=== PATIENT | female | born 1980 | race Two or more races ===

== ENCOUNTER → 2020-04-08 08:13 | Outpatient (BNVA) | payer MEDICARE, SELFPAY | PROVIDERS: PCP Internal Medicine; Visit Provider Dietitian, Registered | DX: Z76.89 Persons encountering health services in other specified circumstances (principal) ==

== ENCOUNTER 2020-04-14 15:08 | Outpatient (REF) | payer MEDICARE, MEDICAID, SELFPAY ==
[2020-04-14 15:56] LABS: COVID-19 Test Negative (Negative)
== END 2020-04-14 15:09 | disposition home or self-care (01) ==
LOC: HO.LAB 15:08
PROVIDERS: Visit Provider Internal Medicine
DX: Z20.828 Contact with and (suspected) exposure to other viral communicable diseases (principal)
CPT/HCPCS: 87635

== ENCOUNTER 2020-04-19 08:51 | Outpatient (REF) | payer MEDICARE, MEDICAID, SELFPAY ==
[2020-04-19 10:18] LABS: MANUAL DIFF FLAG NO
[2020-04-19 10:26] LABS: Basophils Absolute Auto 0.1 X10*3/uL (0.0-0.2); Basophils Percent Auto 0.9 % (0-2); Eosinophils Percent Auto 0.6 % (0-4); Hematocrit 34.4 % (37-47); Hemoglobin 10.5 g/dl (12.0-16.0); Imm Gran Abs Auto 0.03 X10*3/uL (0.00-0.03); Imm Gran Pct Auto 0.4 % (0.0-0.4); Lymphocytes Absolute Auto 1.5 X10*3/uL (1.2-4.9); Lymphocytes Percent Auto 21.1 % (20-40); Mean Corpuscular HGB Conc 30.5 g/dl (31.0-35.0); Mean Corpuscular Hemoglobin 25.4 pg (27.0-33.0); Mean Corpuscular Volume 83.3 fL (80-98); Monocytes Absolute Auto 0.3 X10*3/uL (0.1-1.2); Monocytes Percent Auto 4.7 % (2-11); Neutrophils Absolute Auto 5.1 X10*3/uL (2.0-8.3); Neutrophils Percent Auto 72.3 % (45-73); Platelet Count 350 X10*3/uL (160-400); Red Blood Count 4.13 X10*6/uL (4.20-5.50)
[2020-04-19 10:58] LABS: Alanine Aminotransferase 18 U/L (0-31); Albumin Level 3.8 g/dL (3.5-5.0); Alkaline Phosphatase 88 U/L (39-117); Anion Gap 12 (12-20); Aspartate Amino Transferase 25 U/L (5-31); Bilirubin Total 0.2 mg/dL (0.0-1.0); Blood Urea Nitrogen 17 mg/dL (9-16); Calcium 8.6 mg/dL (8.4-10.2); Carbon Dioxide 25 mmol/L (22-29); Chloride 108 mmol/L (96-108); Estimated Glomerular Filt Rate 41; Glucose Random 75 mg/dL (60-115); Potassium 4.5 mmol/l (3.3-5.1); Sodium 140 mmol/L (135-145); Total Protein 6.9 g/dL (6.5-8.0)
[2020-04-19 11:17] LABS: ~HepC Num1 0.15 S/CO (0.00-0.79); ~Hepatitis C Antibody Nonreactive (Nonreactive)
[2020-04-19 11:45] LABS: Syphilis Screen Nonreactive (Nonreactive)
[2020-04-20 16:13] LABS: Absolute CD3 Count 1076 cells/uL (840-3060); Absolute CD4 Count 427 cells/uL (490-1740); Absolute CD8 Count 628 cells/uL (180-1170); Absolute Lymphocytes 1525 cells/uL (850-3900); CD4 CD8 Ratio 0.68 (0.86-5.00); Percent CD3 Cells 71 % (57-85); Percent CD4 Cells 28 % (30-61); Percent CD8 Cells 41 % (12-42)
[2020-04-21 08:01] LABS: HIV RNA PCR Qn Copies <20 DETECTED copies/mL (NOT DETECTED); HIV RNA PCR Qn Log Copies <1.30 DETECTED (NOT DETECTED)
[2020-04-22 06:12] LABS: TS Negative Control Passed; TS Panel A 0; TS Panel B 0; TS Positive Control Passed; TSpotTB Negative (SeeBelow)
== END 2020-04-19 08:52 | disposition home or self-care (01) ==
LOC: HO.LAB 08:51
PROVIDERS: PCP Internal Medicine; Visit Provider Internal Medicine Infectious Disease
DX: B20 Human immunodeficiency virus [HIV] disease (principal)
CPT/HCPCS: 36415; 80053; 85025; 86359; 86360; 86481; 86780; 86803; 87536

== ENCOUNTER → 2020-05-18 08:11 | Outpatient (BNVA) | payer MEDICARE, MEDICAID, SELFPAY | PROVIDERS: PCP Internal Medicine; Referring Provider Internal Medicine; Visit Provider Physician Assistant | DX: E66.01 Morbid (severe) obesity due to excess calories (principal); Z68.41 Body mass index [BMI] 40.0-44.9, adult; Z90.3 Acquired absence of stomach [part of] | CPT/HCPCS: Q3014 ==

== ENCOUNTER → 2020-05-31 08:07 | Outpatient (BNVA) | payer MEDICARE, MEDICAID, SELFPAY | PROVIDERS: PCP Internal Medicine; Visit Provider Dietitian, Registered | DX: Z76.89 Persons encountering health services in other specified circumstances (principal) ==

== ENCOUNTER → 2020-06-09 11:29 | Outpatient (BNVA) | payer MEDICARE, MEDICAID, SELFPAY | PROVIDERS: PCP Internal Medicine; Visit Provider Advanced Practice Midwife | DX: N76.0 Acute vaginitis (principal) | CPT/HCPCS: Q3014 ==

== ENCOUNTER 2020-06-15 10:07 | Outpatient (REF) | payer MEDICARE, MEDICAID, SELFPAY ==
[2020-06-16 09:08] LABS: BV Int Neg Control Negative (Negative); BV Int Pos Control Positive (Positive)
[2020-06-17 07:03] LABS: C. trachomatis RNA TMA NOT DETECTED (NOT DETECTED); N. gonorrhoeae RNA TMA NOT DETECTED (NOT DETECTED)
== END 2020-06-15 10:08 | disposition home or self-care (01) ==
LOC: HO.LAB 10:07
PROVIDERS: Visit Provider Advanced Practice Midwife
DX: Z20.2 Contact with and (suspected) exposure to infections with a predominantly sexual mode of transmission (principal); N76.0 Acute vaginitis
CPT/HCPCS: 87480; 87491; 87510; 87591; 87660; 99212

== ENCOUNTER 2020-06-15 15:19 | Outpatient (REF) | payer OTHER, SELFPAY | END 2020-06-15 15:20 | disposition home or self-care (01) | LOC: HO.LAB 15:19 | PROVIDERS: PCP Internal Medicine; Visit Provider Internal Medicine Infectious Disease | DX: Z13.89 Encounter for screening for other disorder (principal) ==

== ENCOUNTER 2020-06-16 07:48 | Outpatient (REF) | payer MEDICARE, MEDICAID, SELFPAY ==
[2020-06-16 09:36] LABS: Basophils Percent Auto 0.5 % (0-2); Eosinophils Percent Auto 0.7 % (0-4); Hematocrit 34.3 % (37-47); Hemoglobin 10.3 g/dl (12.0-16.0); Imm Gran Abs Auto 0.03 X10*3/uL (0.00-0.03); Imm Gran Pct Auto 0.5 % (0.0-0.4); Lymphocytes Absolute Auto 1.7 X10*3/uL (1.2-4.9); Lymphocytes Percent Auto 30.1 % (20-40); MANUAL DIFF FLAG NO; Mean Corpuscular Hemoglobin 24.7 pg (27.0-33.0); Mean Corpuscular Volume 82.3 fL (80-98); Mean Platelet Volume 11.1 fL (9.4-12.3); Monocytes Absolute Auto 0.3 X10*3/uL (0.1-1.2); Monocytes Percent Auto 5.2 % (2-11); Neutrophils Absolute Auto 3.5 X10*3/uL (2.0-8.3); Platelet Count 338 X10*3/uL (160-400); Red Blood Count 4.17 X10*6/uL (4.20-5.50); Red Cell Distribution Width 15.7 % (11.0-16.0); White Blood Count 5.6 X10*3/uL (4.8-10.8)
[2020-06-16 10:10] LABS: Alanine Aminotransferase 14 U/L (0-31); Albumin Level 3.8 g/dL (3.5-5.0); Alkaline Phosphatase 77 U/L (39-117); Anion Gap 13 (12-20); Aspartate Amino Transferase 17 U/L (5-31); Bilirubin Total 0.4 mg/dL (0.0-1.0); Blood Urea Nitrogen 15 mg/dL (9-16); Calcium 8.3 mg/dL (8.4-10.2); Carbon Dioxide 21 mmol/L (22-29); Chloride 109 mmol/L (96-108); Estimated Glomerular Filt Rate 55; Glucose Random 80 mg/dL (60-115); Potassium 4.6 mmol/l (3.3-5.1); Sodium 138 mmol/L (135-145); Total Protein 6.9 g/dL (6.5-8.0)
[2020-06-16 10:19] LABS: ~HepC Num1 0.15 S/CO (0.00-0.79); ~Hepatitis C Antibody Nonreactive (Nonreactive)
[2020-06-16 10:20] LABS: Syphilis Screen Nonreactive (Nonreactive)
[2020-06-17 12:07] LABS: Absolute CD3 Count 1207 cells/uL (840-3060); Absolute CD4 Count 476 cells/uL (490-1740); Absolute CD8 Count 735 cells/uL (180-1170); Absolute Lymphocytes 1734 cells/uL (850-3900); CD4 CD8 Ratio 0.65 (0.86-5.00); Percent CD3 Cells 70 % (57-85); Percent CD4 Cells 27 % (30-61); Percent CD8 Cells 42 % (12-42)
[2020-06-17 18:27] LABS: C. trachomatis RNA TMA NOT DETECTED (NOT DETECTED); N. gonorrhoeae RNA TMA NOT DETECTED (NOT DETECTED)
[2020-06-18 15:38] LABS: HIV RNA PCR Qn Copies <20 NOT DETECTED copies/mL (NOT DETECTED); HIV RNA PCR Qn Log Copies <1.30 NOT DETECTED (NOT DETECTED)
[2020-06-18 20:18] LABS: TS Negative Control Passed; TS Panel A 0; TS Panel B 0; TS Positive Control Passed; TSpotTB Negative (SeeBelow)
== END 2020-06-16 07:49 | disposition home or self-care (01) ==
LOC: HO.LAB 07:48
PROVIDERS: Absent Provider Advanced Practice Midwife; PCP Internal Medicine; Visit Provider Internal Medicine Infectious Disease
DX: B20 Human immunodeficiency virus [HIV] disease (principal)
CPT/HCPCS: 36415; 80053; 85025; 86359; 86360; 86481; 86780; 86803; 87491; 87536; 87591

== ENCOUNTER → 2020-06-22 08:14 | Outpatient (BNVA) | payer MEDICAID, MEDICARE, SELFPAY | PROVIDERS: PCP Internal Medicine; Visit Provider Dietitian, Registered | DX: Z76.89 Persons encountering health services in other specified circumstances (principal) ==

== ENCOUNTER → 2020-07-22 08:31 | Outpatient (BNVA) | payer MEDICAID, MEDICARE, SELFPAY | PROVIDERS: PCP Internal Medicine; Visit Provider Physician Assistant ==

== ENCOUNTER 2020-07-28 08:45 | Outpatient (REF) | payer MEDICARE, MEDICAID, SELFPAY ==
--- NOTE | 2020-07-28 08:50 | EMG_ITS ---
HISTORY OF PRESENT ILLNESS: This is a 40-year-old woman with a 6-month history of bilateral upper extremity pain, numbness, and tingling with the left being worse than the right. No other medical problems. No medications. PHYSICAL EXAMINATION: On examination, alert and oriented with normal intellectual functions. Cranial nerves II through XII are normal. Muscle tone and strength are normal in all 4 extremities. No Tinel or Phalen sign. IMPRESSION: Rule out carpal tunnel syndrome. Nerve conduction EMG study: Normal electrodiagnostic study of both upper extremities with no evidence of carpal tunnel syndrome or nerve entrapment. Normal EMG of the left C5 through T1 innervated muscles. MD TIFFANIE Ha/MAUREEN / [id number]
== END 2020-07-28 08:46 | disposition home or self-care (01) ==
LOC: HO.NEURO 08:45
PROVIDERS: PCP Internal Medicine; Visit Provider Internal Medicine
DX: M25.531 Pain in right wrist (principal); M25.532 Pain in left wrist; R29.898 Other symptoms and signs involving the musculoskeletal system
CPT/HCPCS: 95885; 95913

== ENCOUNTER 2020-08-09 15:03 | Outpatient (REF) | payer MEDICARE, MEDICAID, SELFPAY ==
--- NOTE | ~2020-08-09 | MM_ITS ---
EXAMINATION: MM SCREENING DIGITAL BREAST TOMOSYNTHESIS, BILATERAL CLINICAL INFORMATION: Screening. Asymptomatic. The lifetime risk of breast cancer based on the Tyrer-Cuzick Model is 7%. COMPARISON: Mammography: 09/02/2019, 07/18/2018 (baseline) TECHNIQUE: Digital breast tomosynthesis is performed in both the craniocaudal and mediolateral oblique views along with computer-aided detection (CAD). Synthesized 2D images are generated from the tomosynthesis. Additional left cleavage view is provided. FINDINGS: There are scattered areas of fibroglandular density (ACR BI-RADS breast composition Category b). There are no significant masses, abnormal calcifications, or other abnormalities. Parenchymal pattern is similar to prior exams. There are scattered benign round and rim calcifications again seen. The axilla are unremarkable. The skin contours are smooth. MM/MM tomosynthesis screening BI IMPRESSION: No mammographic evidence of malignancy. ASSESSMENT: BI-RADS 2: Benign RECOMMENDATION: Routine annual mammography screening. This patient's information was entered into a reminder system with a target due date for their next mammogram.
== END 2020-08-09 15:04 | disposition home or self-care (01) ==
LOC: HO.MAMMO 15:03
PROVIDERS: PCP Internal Medicine; Visit Provider Internal Medicine
DX: Z12.31 Encounter for screening mammogram for malignant neoplasm of breast (principal)
CPT/HCPCS: 77063; 77067

== ENCOUNTER 2020-08-10 07:38 | Outpatient (REF) | payer MEDICARE, MEDICAID, SELFPAY ==
[2020-08-10 08:48] LABS: MANUAL DIFF FLAG NO
[2020-08-10 08:51] LABS: Basophils Absolute Auto 0.1 X10*3/uL (0.0-0.2); Basophils Percent Auto 0.9 % (0-2); Eosinophils Absolute Auto 0.2 X10*3/uL (0.0-0.4); Eosinophils Percent Auto 2.7 % (0-4); Hematocrit 32.8 % (37-47); Hemoglobin 9.9 g/dl (12.0-16.0); Imm Gran Abs Auto 0.04 X10*3/uL (0.00-0.03); Imm Gran Pct Auto 0.7 % (0.0-0.4); Lymphocytes Absolute Auto 1.8 X10*3/uL (1.2-4.9); Lymphocytes Percent Auto 29.9 % (20-40); Mean Corpuscular HGB Conc 30.2 g/dl (31.0-35.0); Mean Corpuscular Hemoglobin 24.4 pg (27.0-33.0); Mean Corpuscular Volume 80.8 fL (80-98); Mean Platelet Volume 10.5 fL (9.4-12.3); Monocytes Absolute Auto 0.3 X10*3/uL (0.1-1.2); Monocytes Percent Auto 5.1 % (2-11); Neutrophils Absolute Auto 3.6 X10*3/uL (2.0-8.3); Neutrophils Percent Auto 60.7 % (45-73); Platelet Count 386 X10*3/uL (160-400); Red Blood Count 4.06 X10*6/uL (4.20-5.50); Red Cell Distribution Width 16.2 % (11.0-16.0); White Blood Count 5.9 X10*3/uL (4.8-10.8)
[2020-08-10 09:23] LABS: Alanine Aminotransferase 10 U/L (0-31); Albumin Level 3.7 g/dL (3.5-5.0); Alkaline Phosphatase 85 U/L (39-117); Anion Gap 10 (12-20); Aspartate Amino Transferase 14 U/L (5-31); Bilirubin Total 0.5 mg/dL (0.0-1.0); Blood Urea Nitrogen 16 mg/dL (9-16); Calcium 8.3 mg/dL (8.4-10.2); Carbon Dioxide 23 mmol/L (22-29); Chloride 111 mmol/L (96-108); Estimated Glomerular Filt Rate 52; Glucose Random 79 mg/dL (60-115); Potassium 4.4 mmol/L (3.3-5.1); Sodium 140 mmol/L (135-145); Total Protein 6.8 g/dL (6.5-8.0)
[2020-08-11 08:28] LABS: Syphilis Screen Nonreactive (Nonreactive)
[2020-08-11 13:27] LABS: Absolute CD3 Count 1317 cells/uL (840-3060); Absolute CD4 Count 559 cells/uL (490-1740); Absolute CD8 Count 756 cells/uL (180-1170); Absolute Lymphocytes 1821 cells/uL (850-3900); CD4 CD8 Ratio 0.74 (0.86-5.00); Percent CD3 Cells 72 % (57-85); Percent CD4 Cells 31 % (30-61); Percent CD8 Cells 42 % (12-42)
[2020-08-11 17:51] LABS: HCV Log PCR <1.18 NOT DETECTED Log IU/mL (NOT DETECTED); HepC Viral Load <15 NOT DETECTED IU/mL (NOT DETECTED)
[2020-08-12 18:26] LABS: HIV RNA PCR Qn Copies <20 NOT DETECTED copies/mL (NOT DETECTED); HIV RNA PCR Qn Log Copies <1.30 NOT DETECTED (NOT DETECTED)
[2020-08-12 21:36] LABS: TS Negative Control Passed; TS Panel A 0; TS Panel B 0; TS Positive Control Passed; TSpotTB Negative (SeeBelow)
== END 2020-08-10 07:39 | disposition home or self-care (01) ==
LOC: HO.LAB 07:38
PROVIDERS: PCP Internal Medicine; Visit Provider Internal Medicine Infectious Disease
DX: B20 Human immunodeficiency virus [HIV] disease (principal)
CPT/HCPCS: 36415; 80053; 81003; 85025; 86359; 86360; 86481; 86780; 87522; 87536

== ENCOUNTER → 2020-09-17 08:10 | Outpatient (BNVA) | payer MEDICAID, MEDICARE, SELFPAY | PROVIDERS: PCP Internal Medicine; Visit Provider Physician Assistant ==

== ENCOUNTER → 2020-10-26 16:03 | Outpatient (BNVA) | payer MEDICARE, SELFPAY | PROVIDERS: PCP Internal Medicine; Visit Provider Physician Assistant | DX: E66.01 Morbid (severe) obesity due to excess calories (principal); K91.2 Postsurgical malabsorption, not elsewhere classified; Z90.3 Acquired absence of stomach [part of]; Z68.41 Body mass index [BMI] 40.0-44.9, adult | CPT/HCPCS: 99212 ==

== ENCOUNTER → 2021-07-15 08:20 | Outpatient (BNVA) | payer MEDICARE, MEDICAID, SELFPAY | PROVIDERS: PCP Internal Medicine; Referring Provider Internal Medicine; Visit Provider Physician Assistant | DX: Z13.89 Encounter for screening for other disorder (principal) ==

== ENCOUNTER → 2021-07-15 09:28 | Outpatient (REF) | payer MEDICARE, MEDICAID, SELFPAY ==
--- NOTE | 2021-07-15 09:36 | ECG_ITS ---
Test Reason : fam hx cad Blood Pressure : / mmHG Vent. Rate : 073 BPM Atrial Rate : 073 BPM P-R Int : 140 ms QRS Dur : 076 ms QT Int : 402 ms P-R-T Axes : 047 026 013 degrees QTc Int : 442 ms Normal sinus rhythm Normal ECG When compared with ECG of 14-APR-2011 10:04, No significant change was found Referred By: Ursula Hodges Electronically Signed By:ABDULAZIZ MARVIN
== END ==
LOC: HO.CARD 09:28
PROVIDERS: Visit Provider Internal Medicine
DX: Z91.89 Other specified personal risk factors, not elsewhere classified (principal)
CPT/HCPCS: 93005; 99212

== ENCOUNTER 2021-09-06 08:50 | Outpatient (REF) | payer MEDICARE, MEDICAID, SELFPAY ==
--- NOTE | ~2021-09-06 | MM_ITS ---
EXAMINATION: MM SCREENING DIGITAL BREAST TOMOSYNTHESIS, BILATERAL CLINICAL INFORMATION: Screening. Asymptomatic. The lifetime risk of breast cancer based on the Tyrer-Cuzick Model is 7%. COMPARISON: Mammography: 08/09/2020, 08/04/2019, 07/18/2018 TECHNIQUE: Digital breast tomosynthesis is performed in both the craniocaudal and mediolateral oblique views along with computer-aided detection (CAD). Synthesized 2D images are generated from the tomosynthesis. Additional bilateral CC and left MLO views are provided. FINDINGS: There are scattered areas of fibroglandular density (ACR BI-RADS breast composition Category b). Breast tissue composition borders on predominantly fatty. Stromal markings and fibroglandular densities are similar to prior exams. There is no interval mass or architectural abnormality. No abnormal calcifications. No developing density. No significant changes from prior exams. MM/MM tomosynthesis screening BI IMPRESSION: No mammographic evidence of malignancy. ASSESSMENT: BI-RADS 1: Negative RECOMMENDATION: Routine annual mammography screening. This patient's information was entered into a reminder system with a target due date for their next mammogram.
== END 2021-09-06 08:51 | disposition home or self-care (01) ==
LOC: HO.MAMMO 08:50
PROVIDERS: PCP Internal Medicine; Visit Provider Internal Medicine
DX: Z12.31 Encounter for screening mammogram for malignant neoplasm of breast (principal)
CPT/HCPCS: 77063; 77067

== ENCOUNTER 2022-11-07 08:45 | Outpatient (REF) | payer OTHER, SELFPAY ==
--- NOTE | ~2022-11-07 | MM_ITS ---
EXAMINATION: MM SCREENING DIGITAL BREAST TOMOSYNTHESIS, BILATERAL CLINICAL INFORMATION: Screening. Asymptomatic. The lifetime risk of breast cancer based on the Tyrer-Cuzick Model is 7%. COMPARISON: Mammography: 09/06/2021, 08/09/2020, 08/04/2019 TECHNIQUE: Digital breast tomosynthesis is performed in both the craniocaudal and mediolateral oblique views along with computer-aided detection (CAD). Synthesized 2D images are generated from the tomosynthesis. Additional bilateral CC views are provided. FINDINGS: The breasts are almost entirely fatty (ACR BI-RADS breast composition Category a). Background stromal markings are normal, similar to prior studies. No developing density or architectural abnormality. There are no significant masses, abnormal calcifications, or other abnormalities. There are scattered bilateral benign round and rim calcifications. The axilla and skin contours are unremarkable. MM/MM tomosynthesis screening BI IMPRESSION: No mammographic evidence of malignancy. ASSESSMENT: BI-RADS 1: Negative RECOMMENDATION: Routine annual mammography screening. This patient's information was entered into a reminder system with a target due date for their next mammogram.
== END 2022-11-07 08:46 | disposition home or self-care (01) ==
LOC: HO.MAMMO 08:45
PROVIDERS: PCP Internal Medicine; Visit Provider Internal Medicine
DX: Z12.31 Encounter for screening mammogram for malignant neoplasm of breast (principal)
CPT/HCPCS: 77063; 77067

== ENCOUNTER 2022-12-27 17:36 | Outpatient (REF) | payer OTHER, SELFPAY ==
[2022-12-28 14:07] LABS: BV Int Neg Control Negative (Negative); BV Int Pos Control Positive (Positive)
[2023-01-02 03:33] LABS: C. trachomatis RNA TMA NOT DETECTED (NOT DETECTED); N. gonorrhoeae RNA TMA NOT DETECTED (NOT DETECTED)
[2023-01-02 21:23] LABS: HPV mRNA E6/E7 rflx Not Detected (Not Detected)
== END 2022-12-27 17:37 | disposition home or self-care (01) ==
LOC: HO.HHCLNP 17:36
PROVIDERS: Visit Provider Internal Medicine
DX: Z01.419 Encounter for gynecological examination (general) (routine) without abnormal findings (principal); Z11.51 Encounter for screening for human papillomavirus (HPV)
CPT/HCPCS: 36415; 87480; 87491; 87510; 87591; 87624; 87660; 88142

== ENCOUNTER 2023-04-18 08:01 | Outpatient (REF) | payer OTHER, SELFPAY ==
[2023-04-18 11:09] LABS: MANUAL DIFF FLAG NO
[2023-04-18 11:34] LABS: Basophils Percent Auto 0.7 % (0-2); Eosinophils Absolute Auto 0.1 X10*3/uL (0.0-0.4); Eosinophils Percent Auto 1.1 % (0-4); Hemoglobin 11.7 g/dl (12.0-16.0); Imm Gran Abs Auto 0.03 X10*3/uL (0.00-0.03); Imm Gran Pct Auto 0.5 % (0.0-0.4); Lymphocytes Percent Auto 35.1 % (20-40); Mean Corpuscular HGB Conc 30.8 g/dl (31.0-35.0); Mean Corpuscular Volume 94.3 fL (80.0-98.0); Mean Platelet Volume 12.6 fL (9.4-12.3); Monocytes Absolute Auto 0.3 X10*3/uL (0.1-1.2); Monocytes Percent Auto 5.9 % (2-11); Neutrophils Absolute Auto 3.2 x10*3/uL (2.0-8.3); Neutrophils Percent Auto 56.7 % (45-73); Platelet Count 245 X10*3/uL (160-400); Red Blood Count 4.03 X10*6/uL (4.20-5.50); Red Cell Distribution Width 15.9 % (11.0-16.0); White Blood Count 5.6 X10*3/uL (4.8-10.8)
[2023-04-18 11:49] LABS: Alanine Aminotransferase 17 U/L (0-31); Albumin Level 3.2 g/dL (3.5-5.0); Alkaline Phosphatase 84 U/L (39-117); Anion Gap 10 (12-20); Aspartate Amino Transferase 23 U/L (5-31); Bilirubin Total 0.4 mg/dL (0.0-1.0); Blood Urea Nitrogen 16 mg/dL (9-16); Calcium 8.4 mg/dL (8.4-10.2); Carbon Dioxide 22 mmol/L (22-29); Chloride 112 mmol/L (96-108); Estimated Glomerular Filt Rate 55; Glucose Random 75 mg/dL (60-115); Potassium 3.9 mmol/L (3.3-5.1); Sodium 140 mmol/L (135-145); Total Protein 6.4 g/dL (6.5-8.0)
[2023-04-18 11:51] LABS: Cholesterol 131 mg/dL (<200); HDL Cholesterol 60 mg/dL (>40); LDL Cholesterol Calculated 58 mg/dL (<100); Triglycerides 66 mg/dL (<150)
[2023-04-18 12:00] LABS: Reflex LDLD? No
[2023-04-18 12:01] LABS: Syphilis Screen Nonreactive (Nonreactive)
[2023-04-19 10:03] LABS: Absolute CD3 Count 1415 cells/uL (840-3060); Absolute CD4 Count 593 cells/uL (490-1740); Absolute CD8 Count 807 cells/uL (180-1170); Absolute Lymphocytes 2021 cells/uL (850-3900); CD4 CD8 Ratio 0.73 (0.86-5.00); Percent CD3 Cells 70 % (57-85); Percent CD4 Cells 29 % (30-61); Percent CD8 Cells 40 % (12-42)
[2023-04-23 08:29] LABS: HIV RNA PCR Qn Copies NOT DETECTED copies/mL (NOT DETECTED); HIV RNA PCR Qn Log Copies NOT DETECTED (NOT DETECTED)
== END 2023-04-18 08:02 | disposition home or self-care (01) ==
LOC: HO.HHCL 08:01
PROVIDERS: Visit Provider Student in an Organized Health Care Education/Training Program
DX: B20 Human immunodeficiency virus [HIV] disease (principal); Z13.220 Encounter for screening for lipoid disorders
CPT/HCPCS: 36415; 80053; 80061; 85025; 86359; 86360; 86780; 87536

== ENCOUNTER 2023-04-26 17:49 | Outpatient (REF) | payer OTHER, SELFPAY | END 2023-04-26 17:50 | disposition home or self-care (01) | LOC: HO.LNP 17:49 | PROVIDERS: Visit Provider Internal Medicine | DX: J06.9 Acute upper respiratory infection, unspecified (principal) | CPT/HCPCS: 87070 ==

== ENCOUNTER 2023-09-05 09:58 | Outpatient (REF) | payer MEDICARE, MEDICAID, SELFPAY ==
--- NOTE | ~2023-09-05 | XR_ITS ---
EXAMINATION: XR CHEST CLINICAL INFORMATION: Order states cough in adult patient, bronchitis, cough, fever, assess for pneumonia. Patient states: Cough for 5 days and unable to sleep. COMPARISON: 12/19/2018. TECHNIQUE: 2 views of the chest were obtained. FINDINGS: There is no gross pneumothorax. Heart size is normal. No pleural effusion. Heterogeneous left basilar opacities are concerning for an infectious/inflammatory process. No pleural effusion. Mild degenerative changes in the thoracic spine. Surgical clips in the left upper quadrant. XR/XR chest 2V IMPRESSION: Heterogeneous left basilar opacities are concerning for an infectious/inflammatory process. Recommend follow up imaging in 4-6 weeks to confirm resolution and exclude underlying pathology. This study was presented today September 05, 2023 for interpretation. Stat results provided at this time as requested by referring provider.
== END 2023-09-05 09:59 | disposition home or self-care (01) ==
LOC: HO.HHCX 09:58
PROVIDERS: Visit Provider Emergency Medicine
DX: R05.9 Cough, unspecified (principal); J40 Bronchitis, not specified as acute or chronic
CPT/HCPCS: 71046

== ENCOUNTER 2023-09-14 09:58 | Outpatient (REF) | payer MEDICARE, MEDICAID, SELFPAY ==
--- NOTE | ~2023-09-14 | XR_ITS ---
EXAMINATION: X-ray bilateral knees CLINICAL INFORMATION: Pain COMPARISON: None TECHNIQUE: Left knee 2 views. Right knee 3 views. FINDINGS: Left knee: Anatomic alignment. Joint space is maintained. No acute fracture or dislocation. No effusion. No abnormal soft tissue calcification. Right knee: Anatomic alignment. Joint space is maintained. Small medial compartment marginal spurring. No effusion. No acute fracture or dislocation. No abnormal soft tissue calcification. XR/XR knee RT 3V IMPRESSION: Right knee: Tiny medial compartment marginal spurring. No acute findings. Left knee: No acute findings.
--- NOTE | ~2023-09-14 | XR_ITS ---
EXAMINATION: XR HIP, RIGHT CLINICAL INFORMATION: Pain COMPARISON: X-ray 11/05 2015 TECHNIQUE: Two views of the right hip. FINDINGS: No fracture. Alignment is anatomic. Hip joint space is maintained. Soft tissues are unremarkable. XR/XR hip RT min 2V IMPRESSION: No acute findings
--- NOTE | ~2023-09-14 | XR_ITS ---
EXAMINATION: XR LUMBOSACRAL SPINE CLINICAL INFORMATION: Bilateral back pain without sciatica, bilateral knee pain, osteoarthritis. COMPARISON: December 07, 2014. TECHNIQUE: Three views of the lumbosacral spine. FINDINGS: Mild levoscoliosis of the lumbar spine. Surgical clips in the upper abdomen. Facet arthritis in the lower lumbar spine. Please refer to report for exam of hip and pelvis of same date for more detailed evaluation. Degenerative changes in the imaged lower thoracic spine. Lumbar disc space heights and alignment are preserved. XR/XR lumbar spine 2-3V IMPRESSION: Facet arthritis in the lower lumbar spine.
--- NOTE | ~2023-09-14 | XR_ITS ---
EXAMINATION: X-ray bilateral knees CLINICAL INFORMATION: Pain COMPARISON: None TECHNIQUE: Left knee 2 views. Right knee 3 views. FINDINGS: Left knee: Anatomic alignment. Joint space is maintained. No acute fracture or dislocation. No effusion. No abnormal soft tissue calcification. Right knee: Anatomic alignment. Joint space is maintained. Small medial compartment marginal spurring. No effusion. No acute fracture or dislocation. No abnormal soft tissue calcification. XR/XR knee LT 2V IMPRESSION: Right knee: Tiny medial compartment marginal spurring. No acute findings. Left knee: No acute findings.
== END 2023-09-14 09:59 | disposition home or self-care (01) ==
LOC: HO.HHCX 09:58
PROVIDERS: Visit Provider Internal Medicine
DX: M17.0 Bilateral primary osteoarthritis of knee (principal); M25.551 Pain in right hip; M25.552 Pain in left hip; M54.50 Low back pain, unspecified
CPT/HCPCS: 72100; 73502; 73560; 73562

== ENCOUNTER 2023-11-13 09:19 | Outpatient (REF) | payer MEDICARE, MEDICAID, SELFPAY | END 2023-11-13 09:20 | disposition home or self-care (01) | LOC: HO.MAMMO 09:19 | PROVIDERS: PCP Internal Medicine; Visit Provider Internal Medicine | DX: Z12.31 Encounter for screening mammogram for malignant neoplasm of breast (principal) | CPT/HCPCS: 77063; 77067 ==

== ENCOUNTER → 2023-11-13 09:30 | Outpatient (BNV) | payer MEDICARE, MEDICAID, SELFPAY | PROVIDERS: PCP Internal Medicine; Visit Provider Radiology Diagnostic Radiology | DX: Z12.31 Encounter for screening mammogram for malignant neoplasm of breast (principal) | CPT/HCPCS: 77063; 77067 ==

== ENCOUNTER 2023-12-11 13:31 | Outpatient (REF) | payer MEDICARE, MEDICAID, SELFPAY ==
[2023-12-11 16:56] LABS: Ferritin 9 ng/mL (10-250); Vitamin D 25-OH Total 15.9 ng/mL (>30)
== END 2023-12-11 13:32 | disposition home or self-care (01) ==
LOC: HO.HHCL 13:31
PROVIDERS: Visit Provider Internal Medicine
DX: F33.41 Major depressive disorder, recurrent, in partial remission (principal); E83.119 Hemochromatosis, unspecified; Z98.84 Bariatric surgery status; N94.6 Dysmenorrhea, unspecified
CPT/HCPCS: 36415; 82306; 82728

== ENCOUNTER 2023-12-14 10:34 | Outpatient (REF) | payer MEDICARE, MEDICAID, SELFPAY ==
[2023-12-14 11:14] LABS: MANUAL DIFF FLAG NO
[2023-12-14 11:28] LABS: Basophils Absolute Auto 0.1 X10*3/uL (0.0-0.2); Eosinophils Percent Auto 0.8 % (0-4); Hematocrit 30.2 % (37.0-47.0); Imm Gran Abs Auto 0.02 X10*3/uL (0.00-0.03); Imm Gran Pct Auto 0.4 % (0.0-0.4); Lymphocytes Absolute Auto 1.5 X10*3/uL (1.2-4.9); Lymphocytes Percent Auto 30.1 % (20-40); Mean Corpuscular HGB Conc 29.8 g/dl (31.0-35.0); Mean Corpuscular Hemoglobin 24.7 pg (27.0-33.0); Mean Platelet Volume 11.2 fL (9.4-12.3); Monocytes Absolute Auto 0.3 X10*3/uL (0.1-1.2); Monocytes Percent Auto 6.4 % (2-11); Neutrophils Percent Auto 61.3 % (45-73); Platelet Count 276 X10*3/uL (160-400); Red Blood Count 3.64 X10*6/uL (4.20-5.50); Red Cell Distribution Width 18.5 % (11.0-16.0); White Blood Count 4.9 X10*3/uL (4.8-10.8)
[2023-12-14 11:59] LABS: Alanine Aminotransferase 15 U/L (0-31); Albumin Level 3.5 g/dL (3.5-5.0); Alkaline Phosphatase 90 U/L (39-117); Anion Gap 11 (12-20); Aspartate Amino Transferase 21 U/L (5-31); Bilirubin Total 0.3 mg/dL (0.0-1.0); Blood Urea Nitrogen 17 mg/dL (9-16); Calcium 8.5 mg/dL (8.4-10.2); Carbon Dioxide 23 mmol/L (22-29); Chloride 111 mmol/L (96-108); Estimated Glomerular Filt Rate > 60; Glucose Random 68 mg/dL (60-115); Sodium 141 mmol/L (135-145); Total Protein 6.4 g/dL (6.5-8.0)
[2023-12-14 12:17] LABS: TSH reflex Free T4 1.73 uIU/mL (0.32-4.0)
[2023-12-16 15:54] LABS: HIV RNA PCR Qn Copies NOT DETECTED copies/mL (NOT DETECTED); HIV RNA PCR Qn Log Copies NOT DETECTED (NOT DETECTED)
[2023-12-18 13:38] LABS: Absolute CD3 Count 1156 cells/uL (840-3060); Absolute CD4 Count 460 cells/uL (490-1740); Absolute CD8 Count 683 cells/uL (180-1170); Absolute Lymphocytes 1628 cells/uL (850-3900); CD4 CD8 Ratio 0.67 (0.86-5.00); Percent CD3 Cells 71 % (57-85); Percent CD4 Cells 28 % (30-61); Percent CD8 Cells 42 % (12-42)
== END 2023-12-14 10:35 | disposition home or self-care (01) ==
LOC: HO.HHCL 10:34
PROVIDERS: Internal Medicine; Visit Provider Internal Medicine
DX: B20 Human immunodeficiency virus [HIV] disease (principal); F33.41 Major depressive disorder, recurrent, in partial remission
CPT/HCPCS: 36415; 80053; 84443; 85025; 86359; 86360; 87536

== ENCOUNTER 2023-12-19 14:53 | Emergency (ER) | payer MEDICARE, MEDICAID, SELFPAY ==
--- NOTE | 2023-12-19 | ECG_ITS ---
Test Reason : CP Blood Pressure : / mmHG Vent. Rate : 068 BPM Atrial Rate : 068 BPM P-R Int : 086 ms QRS Dur : 076 ms QT Int : 390 ms P-R-T Axes : 024 011 007 degrees QTc Int : 414 ms Sinus rhythm with short FL Otherwise normal ECG When compared with ECG of 15-JUL-2021 09:46, FL interval has decreased Referred By: Generic ED Physician Electronically Signed By:Dionte Kaur
--- NOTE | ~2023-12-19 | XR_ITS ---
EXAMINATION: XR CHEST CLINICAL INFORMATION: Chest pain COMPARISON: Chest xray on 09/05/23 TECHNIQUE: 2 views of the chest were obtained. FINDINGS: No significant abnormality is noted involving the heart, lungs, mediastinum, bony thorax or soft tissues. XR/XR chest 2V IMPRESSION: Unremarkable examination.
[2023-12-19 15:23] VITALS: BP 171/87; PULSE 78; RESP 18; TEMP 36.2; O2SAT 98; BMI 33.7
--- NOTE | 2023-12-19 15:24 | ED_ITS ---
HPI - Chest Pain General Chief Complaint: Chest Pain Stated Complaint: Chest tightness Related Data Home Medications ?Medication ?Instructions ?Recorded ?Confirmed dolutegravir 50 mg tablet (Tivicay) 50 mg PO DAILY 05/18/20 07/15/21 emtricitabine 200 mg-tenofovir 1 tab PO DAILY 05/18/20 07/15/21 disoproxil fumarate 300 mg tablet (Truvada) acetaminophen 500 mg tablet 1,000 mg PO Q6H PRN 07/15/21 07/15/21 diclofenac sodium 1 % topical gel g topical 07/15/21 07/15/21 fluticasone propionate 50 2 spray intranasal DAILY 07/15/21 07/15/21 mcg/actuation nasal spray,suspension hydrocortisone 0.5 % topical cream appl topical DAILY 07/15/21 07/15/21 hydroxyzine HCl 25 mg tablet 25 mg PO DAILY PRN itch 07/15/21 07/15/21 loratadine 10 mg tablet 10 mg PO DAILY PRN allergies 07/15/21 07/15/21 melatonin 5 mg tablet 5 mg PO BEDTIME 07/15/21 07/15/21 omeprazole 20 mg capsule,delayed 20 mg PO DAILY 07/15/21 07/15/21 release zolpidem 10 mg tablet 10 mg PO BEDTIME 07/15/21 07/15/21 Allergies Allergy/AdvReac Type Severity Reaction Status Date / Time morphine [Morphine] Allergy Intermediate Vomiting Verified 12/19/23 15:27 iron dextran complex AdvReac Intermediate BP Verified 12/19/23 15:27 [Iron Dextran Complex] DROPPED; PURITIS PMFSH Past Medical History Medical History (Updated 12/20/23 @ 00:00 by Sonia Esquivel) Intestinal malabsorption following gastrectomy Morbid obesity with BMI of 40.0-44.9, adult Eczema HIV (human immunodeficiency virus infection) Surgical History (Updated 07/15/21 @ 09:04 by Betty Hernandez PA-C) History of tonsillectomy History of tubal ligation S/P laparoscopic cholecystectomy History of sleeve gastrectomy History of removal of laparoscopic gastric banding device History of adjustable gastric banding Family History Family History Father Cirrhosis Mother Type 2 diabetes mellitus HTN (hypertension) Brother No problems noted. Brother No problems noted. Brother No problems noted. Sister No problems noted. Son No problems noted. Daughter No problems noted. Daughter No problems noted. Social History Social History (Updated 07/15/21 @ 08:41 by Melodie Mendoza CMA) Alcohol intake: current Alcohol intake frequency: holidays/special occasions only Patient Tobacco Use Status: Never used Tobacco Advance Directives: No Advance Directives Information Provided: No Do you have a plan to hurt others: No Plan Physical Exam 2 Vital Signs: Vital Signs: Last Vital Signs Temp 97.2 F 12/19/23 15:23 Pulse 78 12/19/23 15:23 Resp 18 12/19/23 15:23 BP 171/87 H 12/19/23 15:23 Pulse Ox 98 12/19/23 15:23 O2 Del Method Room Air 12/19/23 15:23 BMI result Body Mass Index 33.7 Course Course Course Narrative: This is an RME: Additional HPI, ROS, PE not included below will be deferred to primary provider. RME assessment and note performed by: Shanti Riggs PA-C This is a 40-tytr-sfx-female, with a hx of HIV, asthma, who presents to the ER with complaints of intermittent chest tightness since last night. She has a history of HIV, seeing Dr. Bhagat in January - upon review of her chart, CD4 count in the 20s. Plan: Labs, EKG, chest x-ray, further ER evaluation needed. Reevaluation(s) Reevaluation #1: Patient left without completing treatment. Medical Decision Making Lab Data 12/19/23 16:38 12/19/23 16:38 Labs: Lab Results 12/19/23 Range/Units 16:38 WBC 6.3 (4.8-10.8) X10*3/uL RBC 4.04 L (4.20-5.50) X10*6/uL Hgb 10.0 L (12.0-16.0) g/dl Hct 33.7 L (37.0-47.0) % MCV 83.4 (80.0-98.0) fL MCH 24.8 L (27.0-33.0) pg MCHC 29.7 L (31.0-35.0) g/dl RDW 18.4 H (11.0-16.0) % Plt Count 271 (160-400) X10*3/uL MPV 10.8 (9.4-12.3) fL Immature Gran % (Auto) 0.3 (0.0-0.4) % Neut % (Auto) 59.0 (45-73) % Lymph % (Auto) 35.2 (20-40) % Izard % (Auto) 4.4 (2-11) % Eos % (Auto) 0.5 (0-4) % Baso % (Auto) 0.6 (0-2) % Lymph # (Auto) 2.2 (1.2-4.9) X10*3/uL Izard # (Auto) 0.3 (0.1-1.2) X10*3/uL Eos # (Auto) 0.0 (0.0-0.4) X10*3/uL Baso # (Auto) 0.0 (0.0-0.2) X10*3/uL Abs Immat Gran (auto) 0.02 (0.00-0.03) X10*3/uL Absolute Neuts (auto) 3.7 (2.0-8.3) x10*3/uL Absolute Nucleated RBC 0.000 (0.0-0.012) X10*3/uL Nucleated RBC % (auto) 0.0 (0.0-0.2) /100WBC Sodium 139 (135-145) mmol/L Potassium 3.8 (3.3-5.1) mmol/L Chloride 113 H (96-108) mmol/L Carbon Dioxide 18 L (22-29) mmol/L Anion Gap 12 (12-20) BUN 15 (9-16) mg/dL Creatinine 1.18 (0.5-1.4) mg/dL Estim Creat Clear Calc 55.7 Estimated GFR 50 Random Glucose 91 (60-115) mg/dL Calcium 8.2 L (8.4-10.2) mg/dL Total Bilirubin 0.5 (0.0-1.0) mg/dL Direct Bilirubin 0.2 (0.0-0.5) mg/dL AST 22 (5-31) U/L ALT 16 (0-31) U/L Alkaline Phosphatase 102 (39-117) U/L Troponin I High Sens < 2.7 (<3.5-17.0) ng/L Total Protein 7.1 (6.5-8.0) g/dL Albumin 3.9 (3.5-5.0) g/dL Influenza Type A (PCR) NEGATIVE (Negative) Influenza Type B (PCR) NEGATIVE (Negative) RSV RNA Qual (PCR) NEGATIVE (Negative) SARS-CoV-2 RNA (RT-PCR) NEGATIVE (Negative) Discharge Plan Discharge Clinical Impression: Chest pain Patient Disposition: Left W/O Completing Treatment Prescriptions: No Action Tivicay 50 mg tablet 50 mg PO DAILY emtricitabine-tenofovir (TDF) [Truvada] 200-300 mg tablet 1 tab PO DAILY loratadine 10 mg tablet 10 mg PO DAILY PRN (Reason: allergies) zolpidem 10 mg tablet 10 mg PO BEDTIME fluticasone propionate 50 mcg/actuation spray,suspension 2 spray intranasal DAILY omeprazole 20 mg capsule,delayed release(DR/EC) 20 mg PO DAILY hydroxyzine HCl 25 mg tablet 25 mg PO DAILY PRN (Reason: itch) melatonin 5 mg tablet 5 mg PO BEDTIME acetaminophen 500 mg tablet 1,000 mg PO Q6H PRN hydrocortisone 0.5 % cream topical DAILY diclofenac sodium 1 % gel topical Discharge Date/Time: 12/19/23 22:41
[2023-12-19 16:43] LABS: Basophils Percent Auto 0.6 % (0-2); Eosinophils Percent Auto 0.5 % (0-4); Hematocrit 33.7 % (37.0-47.0); Imm Gran Abs Auto 0.02 X10*3/uL (0.00-0.03); Imm Gran Pct Auto 0.3 % (0.0-0.4); Lymphocytes Absolute Auto 2.2 X10*3/uL (1.2-4.9); Lymphocytes Percent Auto 35.2 % (20-40); MANUAL DIFF FLAG NO; Mean Corpuscular HGB Conc 29.7 g/dl (31.0-35.0); Mean Corpuscular Hemoglobin 24.8 pg (27.0-33.0); Mean Corpuscular Volume 83.4 fL (80.0-98.0); Mean Platelet Volume 10.8 fL (9.4-12.3); Monocytes Absolute Auto 0.3 X10*3/uL (0.1-1.2); Monocytes Percent Auto 4.4 % (2-11); Neutrophils Absolute Auto 3.7 x10*3/uL (2.0-8.3); Platelet Count 271 X10*3/uL (160-400); Red Blood Count 4.04 X10*6/uL (4.20-5.50); Red Cell Distribution Width 18.4 % (11.0-16.0); White Blood Count 6.3 X10*3/uL (4.8-10.8)
[2023-12-19 17:00] LABS: Alanine Aminotransferase 16 U/L (0-31); Albumin Level 3.9 g/dL (3.5-5.0); Alkaline Phosphatase 102 U/L (39-117); Anion Gap 12 (12-20); Aspartate Amino Transferase 22 U/L (5-31); Bilirubin Direct 0.2 mg/dL (0.0-0.5); Bilirubin Total 0.5 mg/dL (0.0-1.0); Blood Urea Nitrogen 15 mg/dL (9-16); Calcium 8.2 mg/dL (8.4-10.2); Carbon Dioxide 18 mmol/L (22-29); Chloride 113 mmol/L (96-108); Creatinine Clr Calc Pharmacy 55.7; Estimated Glomerular Filt Rate 50; Glucose Random 91 mg/dL (60-115); Potassium 3.8 mmol/L (3.3-5.1); Sodium 139 mmol/L (135-145); Total Protein 7.1 g/dL (6.5-8.0)
[2023-12-19 17:19] LABS: Troponin-I High Sensitivity < 2.7 ng/L (<3.5-17.0)
[2023-12-19 17:21] LABS: Influenza A PCR NEGATIVE (Negative); Influenza B PCR NEGATIVE (Negative); Resp Syncy Virus RNA Qual PCR NEGATIVE (Negative); SARS COV2 PCR INHOUSE NEGATIVE (Negative)
== END 2023-12-19 22:41 | disposition left against medical advice (07) ==
LOC: HO.ED 22:40
PROVIDERS: Physician Assistant Medical; Emergency Provider Emergency Medicine; PCP Internal Medicine
DX: R07.89 Other chest pain (principal); Z03.818 Encounter for observation for suspected exposure to other biological agents ruled out; Z79.899 Other long term (current) drug therapy
CPT/HCPCS: 0241U; 71046; 80048; 80076; 84484; 85025; 93005; 99283

== ENCOUNTER → 2023-12-19 14:54 | Outpatient (BNV) | payer MEDICARE, MEDICAID, SELFPAY | PROVIDERS: Emergency Provider Emergency Medicine; PCP Internal Medicine; Visit Provider Internal Medicine Cardiovascular Disease | DX: R07.9 Chest pain, unspecified (principal); I49.8 Other specified cardiac arrhythmias | CPT/HCPCS: 93010 ==

== ENCOUNTER 2024-01-04 | Outpatient (REF) | payer MEDICAID, SELFPAY ==
[2024-01-04 18:05] LABS: CT PCR NOT DETECTED (Not Detect.); NG PCR NOT DETECTED (Not Detect.)
== END 2024-01-04 00:01 | disposition home or self-care (01) ==
LOC: HO.LNP
PROVIDERS: Visit Provider Internal Medicine
DX: Z11.3 Encounter for screening for infections with a predominantly sexual mode of transmission (principal); B20 Human immunodeficiency virus [HIV] disease; A63.8 Other specified predominantly sexually transmitted diseases
CPT/HCPCS: 87491; 87591

== ENCOUNTER 2024-01-04 16:26 | Outpatient (REF) | payer MEDICARE, MEDICAID, SELFPAY ==
[2024-01-04 17:37] LABS: Bacterial Vaginosis PCR NEGATIVE (Negative); Candida Group PCR NOT DETECTED (Not Detect); Candida glab krusei PCR NOT DETECTED (Not Detect); Trichomonas vaginalis PCR NOT DETECTED (Not Detect)
[2024-01-18 11:26] LABS: HPV mRNA E6/E7 rflx Not Detected
== END 2024-01-04 16:27 | disposition home or self-care (01) ==
LOC: HO.HHCLNP 16:26
PROVIDERS: Visit Provider Internal Medicine
DX: Z01.419 Encounter for gynecological examination (general) (routine) without abnormal findings (principal); B20 Human immunodeficiency virus [HIV] disease; A63.8 Other specified predominantly sexually transmitted diseases; Z11.3 Encounter for screening for infections with a predominantly sexual mode of transmission
CPT/HCPCS: 0352U; 87624; 88112; 88175

== ENCOUNTER 2024-04-04 11:06 | Outpatient (REF) | payer MEDICARE, MEDICAID, SELFPAY ==
[2024-04-04 13:33] LABS: Hematocrit 30.1 % (37.0-47.0); Hemoglobin 8.5 g/dl (12.0-16.0)
[2024-04-04 13:58] LABS: Ferritin 5 ng/mL (10-250); Vitamin D 25-OH Total 29.7 ng/mL (>30)
[2024-04-04 14:12] LABS: Folate 14.3 ng/mL (> or = 4.0); Vitamin B12 513 pg/mL (200-900)
== END 2024-04-04 11:07 | disposition home or self-care (01) ==
LOC: HO.HHCL 11:06
PROVIDERS: Visit Provider Internal Medicine
DX: D50.0 Iron deficiency anemia secondary to blood loss (chronic) (principal); E55.9 Vitamin D deficiency, unspecified
CPT/HCPCS: 36415; 82306; 82607; 82728; 82746; 85014; 85018

== ENCOUNTER 2024-05-14 11:23 | Outpatient (AMB) | payer MEDICAID, SELFPAY ==
--- NOTE | 2024-05-14 11:28 | A.OFFVIS_ITS ---
Vital Signs 05/14/24 11:31 Height 5 ft Weight 164 lb BMI 32.0 BP 112/72 Intake Visit Reasons: AUB Pesticide Use Medical Coordinator: Pesticide Use Medical Coordinator Present (Sara) Allergies morphine [Morphine] Allergy (Intermediate, Verified 05/14/24 11:29) Vomiting iron dextran complex [Iron Dextran Complex] Adverse Reaction (Intermediate, Verified 05/14/24 11:29) BP DROPPED; PURITIS Is last menstrual period known: Yes Last menstrual period: 04/21/24 HPI Comments Details: Patient is here today referred from her primary care due to AUB. History of anemia with prolonged heavy cycles. Paps negative- 01/04/2024. TSH-1.73, H and H 8.5/30.1. GC chlamydia negative 12/2023. History of CVA in 2009. [facility] Medical History (Updated 05/14/24 @ 12:55 by BARBARA Briones) H/O bipolar disorder PTSD (post-traumatic stress disorder) Asthma Iron deficiency anemia due to chronic blood loss Inactive tuberculosis Hyperparathyroidism Hypoglycemia Herpes labialis History of anxiety Carpal tunnel syndrome Stroke History of major depression Abnormal uterine bleeding (AUB) Intestinal malabsorption following gastrectomy Morbid obesity with BMI of 40.0-44.9, adult Eczema HIV (human immunodeficiency virus infection) Surgical History (Updated 07/15/21 @ 09:04 by Betty Hernandez PA-C) History of tonsillectomy History of tubal ligation S/P laparoscopic cholecystectomy History of sleeve gastrectomy History of removal of laparoscopic gastric banding device History of adjustable gastric banding Family History Father Cirrhosis Mother Type 2 diabetes mellitus HTN (hypertension) Brother No problems noted. Brother No problems noted. Brother No problems noted. Sister No problems noted. Son No problems noted. Daughter No problems noted. Daughter No problems noted. Social History (Updated 05/14/24 @ 11:36 by BARBARA Briones) Alcohol intake: current Alcohol intake frequency: holidays/special occasions only Patient Tobacco Use Status: Never used Tobacco Sexual orientation: Straight/Heterosexual Gender identity: Female Female Reproductive History Menstrual Duration of menses: 8-10 days Date of last menstrual period: 04/21/24 control method: permanent sterilization Permanent Sterilization: BTL Total pregnancies: 6 Full term: 3 Number of Living Children: 3 Ab induced: 1 Ab spontaneous: 2 Date of last pap smear: 01/04/24 (neg @[facility]) Review of Systems Const All systems reviewed & are unremarkable except as noted in HPI and below Physical Exam Vital Signs: Last Vital Signs BP 112/72 05/14/24 11:31 BMI result Body Mass Index 32.0 Const General: cooperative, healthy appearing and no acute distress Orientation/consciousness: patient oriented x3 GI Inspection: Yes normal to inspection Palpation (GI): Soft to palpation and Other GI palpation findings present (Nontender) Rectal Exam - Female: visual inspection normal General: Yes bladder normal to palpation External Female Exam: normal appearance of the urethra Speculum Exam - Vagina: normal appearance of the vagina, normal palpation and normal vaginal discharge Speculum Exam - Cervix: normal appearance of the cervix and normal palpation Bimanual exam- vagina & uterus: normal bimanual exam, normal palpation, uterine size normal, bladder normal to palpation, normal palpation, uterine shape normal and non-tender Bimanual Exam- Adnexa, other: normal adnexae Neuro General: patient oriented x3 Results AMB Test Urine AMB Test Urine Negative Last Edit by BARBARA Briones on 05/14/24 11:39 Results Reviewed Results Reviewed: Laboratory Last Values Tst Clinic Negative 05/14/24 11:39 Assessment & Plan Assessment & Plan (1) Abnormal uterine bleeding (AUB): Code(s): N93.9 - Abnormal uterine and vaginal bleeding, unspecified Category: Medical Plan Discussed: Plan of care AUB workup-pelvic ultrasound, endometrial biopsy to rule out any abnormal pathologies including uterine cancer. Treatment options include medication oral hormones, progesterone IUD, uterine ablation as last resort. She is interested in the Mirena IUD. Anticipatory guidance for EMB reviewed advised either ibuprofen if tolerable if not Tylenol 1 hour before procedure with food and fluids. Consider ablation due to history of CVA, await results for plan of care referral to Dr. Green for a uterine ablation consult. The patient expressed understanding and agreement with the plan of care. All of her questions and concerns were addressed to the best of my ability. This note is constructed using voice recognition software. While every effort has been made to ensure accuracy, edge banding off bearer errors may have been included. Orders: Orders US pelvic and transvaginal Today N93.9 - Abnormal uterine and vaginal bleeding, unspecified AMB HCG Urine Test Today Z32.02 - Encounter for test, result negative Coding Level of Care Code New Pt Level 4 (19680) Diagnoses Abnormal uterine bleeding (AUB) N93.9
[2024-05-14 11:31] VITALS: BP 112/72; BMI 32.0
== END 2024-05-14 14:18 | disposition home or self-care (01) ==
PROVIDERS: PCP Internal Medicine; Visit Provider Advanced Practice Midwife
DX: Z32.02 Encounter for pregnancy test, result negative (principal); N93.9 Abnormal uterine and vaginal bleeding, unspecified
CPT/HCPCS: 99204

== ENCOUNTER → 2024-05-14 11:23 | Outpatient (BNVA) | payer MEDICARE, MEDICAID, SELFPAY | PROVIDERS: PCP Internal Medicine; Visit Provider Advanced Practice Midwife | DX: N93.9 Abnormal uterine and vaginal bleeding, unspecified (principal); D50.0 Iron deficiency anemia secondary to blood loss (chronic); Z32.02 Encounter for pregnancy test, result negative | CPT/HCPCS: 81025; 99202 ==

== ENCOUNTER 2024-05-16 12:29 | Outpatient (REF) | payer MEDICAID, SELFPAY ==
--- NOTE | ~2024-05-16 | US_ITS ---
EXAMINATION: US PELVIS CLINICAL INFORMATION: Abnormal uterine bleeding COMPARISON: None available. TECHNIQUE: Ultrasound of the pelvis is performed using both transabdominal and transvaginal transducers along with Doppler. Transvaginal imaging is performed due to inadequate visualization transabdominally. FINDINGS: Uterus: The uterus is anteverted and measures 9.3 x 4.9 x 6.8 cm. There is a 2.2 cm fibroid near the fundus. The double wall endometrial thickness is 1.2 mm. The uterus is smooth in contour and has normal myometrial echogenicity. No visible fibroid. Adnexa: Both ovaries are visualized. There is normal color flow to the adnexa. There is no ovarian torsion. There is no pelvic ascites or fluid collection. Right ovary measures 2.5 x 1.2 x 2.1 cm. Left ovary measures 2.9 x 2.5 x 2.5 cm. There is a 1.5 cm dominant follicle. US/US pelvic and transvaginal IMPRESSION: 2.2 cm fibroid near the fundus. Electronically signed by: Loida Mcclain MD 05/16/2024 08:25 PM [facility]
== END 2024-05-16 12:30 | disposition home or self-care (01) ==
LOC: HO.US 12:29
PROVIDERS: PCP Internal Medicine; Visit Provider Advanced Practice Midwife
DX: N93.9 Abnormal uterine and vaginal bleeding, unspecified (principal)
CPT/HCPCS: 76830; 76856

== ENCOUNTER 2024-05-23 12:22 | Outpatient (AMB) | payer MEDICAID, SELFPAY ==
--- NOTE | 2024-05-23 12:59 | MHC.OFFVIS ---
Vital Signs 05/23/24 13:00 Height 5 ft Weight 164 lb BMI 32.0 BP 120/76 Intake Visit Reasons: US follow up/EMB General Sales Manager: General Sales Manager Present (Sara) Allergies morphine [Morphine] Allergy (Intermediate, Verified 05/23/24 13:00) Vomiting iron dextran complex [Iron Dextran Complex] Adverse Reaction (Intermediate, Verified 05/23/24 13:00) BP DROPPED; PURITIS Is last menstrual period known: Yes Last menstrual period: 05/22/24 HPI Comments Details: Patient is here today for a follow up pelvic ultrasound and EMB, history of AUB. Ultrasound findings reveal a small fibroids she reports as a new diagnosis for her. History of anemia last TSH 12/14/2023 was 1.73, H and H was 8.5/30.1. She has blood work fasting due on Sunday. She is taking her iron supplements and denies any lightheadedness, dizziness, shortness of breath. Her primary care completes her Pap smears yearly. [facility] Medical History (Updated 05/23/24 @ 13:32 by Estrella Lantigua CNM) Uterine fibroid H/O bipolar disorder PTSD (post-traumatic stress disorder) Asthma Iron deficiency anemia due to chronic blood loss Inactive tuberculosis Hyperparathyroidism Hypoglycemia Herpes labialis History of anxiety Carpal tunnel syndrome Stroke History of major depression Abnormal uterine bleeding (AUB) Intestinal malabsorption following gastrectomy Morbid obesity with BMI of 40.0-44.9, adult Eczema HIV (human immunodeficiency virus infection) Surgical History (Updated 07/15/21 @ 09:04 by Betty Hernandez PA-C) History of tonsillectomy History of tubal ligation S/P laparoscopic cholecystectomy History of sleeve gastrectomy History of removal of laparoscopic gastric banding device History of adjustable gastric banding Family History Father Cirrhosis Mother Type 2 diabetes mellitus HTN (hypertension) Brother No problems noted. Brother No problems noted. Brother No problems noted. Sister No problems noted. Son No problems noted. Daughter No problems noted. Daughter No problems noted. Social History (Updated 05/14/24 @ 11:36 by BARBARA Briones) Alcohol intake: current Alcohol intake frequency: holidays/special occasions only Patient Tobacco Use Status: Never used Tobacco Sexual orientation: Straight/Heterosexual Gender identity: Female Female Reproductive History Menstrual Date of last menstrual period: 05/22/24 Review of Systems Const All systems reviewed & are unremarkable except as noted in HPI and below Endo Reports no additional complaints Physical Exam Vital Signs: Last Vital Signs BP 120/76 05/23/24 13:00 BMI result Body Mass Index 32.0 Const General: cooperative, healthy appearing and no acute distress Psych Appearance: well kempt Attitude: cooperative Thought process: Normal thought process present Results AMB Test Urine AMB Test Urine Negative Last Edit by BARBARA Briones on 05/23/24 13:10 Results Reviewed Results Reviewed: Laboratory Last Values Tst Clinic Negative 05/23/24 13:10 Assessment & Plan Assessment & Plan (1) Abnormal uterine bleeding (AUB): Code(s): N93.9 - Abnormal uterine and vaginal bleeding, unspecified Category: Medical (2) Uterine fibroid: Code(s): D25.9 - Leiomyoma of uterus, unspecified Category: Medical Qualifiers: Uterine leiomyoma location: unspecified location Qualified Code(s): D25.9 - Leiomyoma of uterus, unspecified (3) Encounter to discuss test results: Code(s): Z71.2 - Person consulting for explanation of examination or test findings Plan Discussed: Ultrasound findings-fibroid. Counseled re: Leiomyoma: common pelvic neoplasm. Differential diagnosis-may include but not limited to- leiomyosarcoma which is a rare uterine sarcoma 3-7/100,000, difficult to distinguish from fibroids on ultrasound from uterine sarcoma's. Unlikely any single test will have a highly positive predictive value. Hysterectomy is not recommended for sole purpose of excluding malignant neoplasm. Consult for surgical exploration, medical treatment, other treatments, verses expectant management, pros and cons, risks and benefits. Expectant management follow up in 6 months, then yearly for stability. Report any AUB, pelvic pressure, bloating, or pain. Referral to MD if indicated for level of care if indicated. Counseled regarding the endometrial biopsy procedure, due to patient's past medical history she is anticipating having a uterine ablation versus medical treatment and prefers to have her EMB done under anesthesia especially if considering she will have an ablation procedure at the same time. Advised to have her labs obtained to check her status, and to call if bleeding becomes heavy or prolonged for immediate care, for any emergent care she can go to the emergency room for evaluation. Encouraged to continue her iron therapy and hydrate well. 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 Orders: Orders AMB HCG Urine Test Today N93.9 - Abnormal uterine and vaginal bleeding, unspecified US pelvic and transvaginal 11/10/24 D25.9 - Leiomyoma of uterus, unspecified Coding Level of Care Code Est Pt Level 3 (94980) Diagnoses Abnormal uterine bleeding (AUB) N93.9 Uterine leiomyoma, unspecified location D25.9 Uterine leiomyoma location: unspecified location Encounter to discuss test results Z71.2
[2024-05-23 13:00] VITALS: BP 120/76; BMI 32.0
== END 2024-05-23 13:34 | disposition home or self-care (01) ==
PROVIDERS: PCP Internal Medicine; Visit Provider Advanced Practice Midwife
DX: N93.9 Abnormal uterine and vaginal bleeding, unspecified (principal); D25.9 Leiomyoma of uterus, unspecified; Z71.2 Person consulting for explanation of examination or test findings
CPT/HCPCS: 99213

== ENCOUNTER → 2024-05-23 12:22 | Outpatient (BNVA) | payer MEDICAID, SELFPAY | PROVIDERS: PCP Internal Medicine; Visit Provider Advanced Practice Midwife | DX: Z71.2 Person consulting for explanation of examination or test findings (principal); N93.9 Abnormal uterine and vaginal bleeding, unspecified; D25.9 Leiomyoma of uterus, unspecified | CPT/HCPCS: 81025; 99212 ==

== ENCOUNTER 2024-05-26 09:21 | Outpatient (REF) | payer MEDICAID, SELFPAY ==
[2024-05-26 12:13] LABS: MANUAL DIFF FLAG NO
[2024-05-26 12:32] LABS: Basophils Absolute Auto 0.1 X10*3/uL (0.0-0.2); Basophils Percent Auto 1.1 % (0-2); Eosinophils Percent Auto 0.6 % (0-4); Hematocrit 29.8 % (37.0-47.0); Hemoglobin 8.3 g/dl (12.0-16.0); Imm Gran Abs Auto 0.03 X10*3/uL (0.00-0.03); Imm Gran Pct Auto 0.5 % (0.0-0.4); Lymphocytes Absolute Auto 2.2 X10*3/uL (1.2-4.9); Lymphocytes Percent Auto 35.4 % (20-40); Mean Corpuscular HGB Conc 27.9 g/dl (31.0-35.0); Mean Corpuscular Hemoglobin 19.9 pg (27.0-33.0); Mean Corpuscular Volume 71.5 fL (80.0-98.0); Mean Platelet Volume 11.1 fL (9.4-12.3); Monocytes Absolute Auto 0.4 X10*3/uL (0.1-1.2); Neutrophils Absolute Auto 3.5 x10*3/uL (2.0-8.3); Neutrophils Percent Auto 56.4 % (45-73); Platelet Count 402 X10*3/uL (160-400); Red Blood Count 4.17 X10*6/uL (4.20-5.50); White Blood Count 6.2 X10*3/uL (4.8-10.8)
[2024-05-26 12:51] LABS: Alanine Aminotransferase 18 U/L (0-31); Albumin Level 3.4 g/dL (3.5-5.0); Alkaline Phosphatase 90 U/L (39-117); Anion Gap 10 (12-20); Aspartate Amino Transferase 35 U/L (5-31); Bilirubin Total 0.3 mg/dL (0.0-1.0); Blood Urea Nitrogen 17 mg/dL (9-16); Calcium 8.2 mg/dL (8.4-10.2); Carbon Dioxide 23 mmol/L (22-29); Chloride 110 mmol/L (96-108); Cholesterol 135 mg/dL (<200); Estimated Glomerular Filt Rate > 60; Glucose Random 70 mg/dL (60-115); HDL Cholesterol 66 mg/dL (>40); LDL Cholesterol Calculated 57 mg/dL (<100); Potassium 4.1 mmol/L (3.3-5.1); Sodium 139 mmol/L (135-145); Total Protein 6.4 g/dL (6.5-8.0); Triglycerides 60 mg/dL (<150)
[2024-05-26 12:58] LABS: Reflex LDLD? No
[2024-05-26 13:01] LABS: HBS Num1 > 1000.00 mIU/mL (0-7.99); HBc Num1 0.07 S/CO (0.00-0.79); HBsAGNum1 0.39 S/CO (0.00-0.99); Hepatitis A Antibody IgG REACTIVE (Nonreactive); Hepatitis B Core Antibody Nonreactive (Nonreactive); Hepatitis B Surface Antigen Negative (Negative); ~HepC Num1 0.14 S/CO (0.00-0.79); ~Hepatitis A Antibody IgG 10.17 S/CO (0.00-0.99); ~Hepatitis B Surface Antibody REACTIVE (Nonreactive); ~Hepatitis C Antibody Nonreactive (Nonreactive)
[2024-05-26 13:07] LABS: Syphilis Screen Nonreactive (Nonreactive)
[2024-05-28 16:53] LABS: HIV RNA PCR Qn Copies 55 copies/mL (NOT DETECTED); HIV RNA PCR Qn Log Copies 1.74 (NOT DETECTED)
[2024-05-29 04:43] LABS: TS Negative Control Passed; TS Panel A 0; TS Panel B 0; TS Positive Control Passed; TSpotTB Negative (Negative)
[2024-05-30 16:24] LABS: Absolute CD3 Count 1488 cells/uL (840-3060); Absolute CD4 Count 577 cells/uL (490-1740); Absolute CD8 Count 887 cells/uL (180-1170); Absolute Lymphocytes 2240 cells/uL (850-3900); CD4 CD8 Ratio 0.65 (0.86-5.00); Percent CD3 Cells 66 % (57-85); Percent CD4 Cells 26 % (30-61); Percent CD8 Cells 40 % (12-42)
== END 2024-05-26 09:22 | disposition home or self-care (01) ==
LOC: HO.HHCL 09:21
PROVIDERS: Internal Medicine; Visit Provider Internal Medicine
DX: B20 Human immunodeficiency virus [HIV] disease (principal); Z02.1 Encounter for pre-employment examination; Z11.59 Encounter for screening for other viral diseases; Z13.6 Encounter for screening for cardiovascular disorders
CPT/HCPCS: 36415; 80053; 80061; 85025; 86359; 86360; 86481; 86704; 86706; 86708; 86765; 86780; 86803; 87340; 87536

== ENCOUNTER 2024-05-29 08:10 | Outpatient (REF) | payer MEDICAID, SELFPAY | END 2024-05-29 08:11 | disposition home or self-care (01) | LOC: HO.LNP 08:10 | PROVIDERS: PCP Internal Medicine; Visit Provider Obstetrics & Gynecology | DX: N93.9 Abnormal uterine and vaginal bleeding, unspecified (principal) | CPT/HCPCS: 58100; 88305 ==

== ENCOUNTER 2024-05-29 08:10 | Outpatient (AMB) | payer MEDICAID, SELFPAY ==
[2024-05-29 08:12] VITALS: BP 118/74; BMI 32.0
--- NOTE | 2024-05-29 08:12 | MHC.OFFVIS ---
Vital Signs 05/29/24 08:12 Height 5 ft Weight 164 lb BMI 32.0 BP 118/74 Intake Visit Reasons: Ablation consult Key Operator Required: No Information Interpreted: non-clinical & clinical Location And Measurement Technician: Location And Measurement Technician Present ([place] JIMENEZ) Accompanied by: Self / Same As Patient Allergies morphine [Morphine] Allergy (Intermediate, Verified 05/29/24 08:18) Vomiting iron dextran complex [Iron Dextran Complex] Adverse Reaction (Intermediate, Verified 05/29/24 08:18) BP DROPPED; PURITIS HPI Comments Details: The patient is presenting referred from Estrella Lantigua CNM regarding abnormal uterine bleeding options of treatment. The following workup was done.: 06/03 H&H= 8.3/29.8 01/01 TSH,GC and chlamydia were negative. 12/31 Co testing was done was negative. 12/02 mammogram was BI-RADS 1 06/03 Pelvic ultrasound showed the following: Uterus: The uterus is anteverted and measures 9.3 x 4.9 x 6.8 cm. There is a 2.2 cm fibroid near the fundus. The double wall endometrial thickness is 1.2 mm. The uterus is smooth in contour and has normal myometrial echogenicity. No visible fibroid. Adnexa: Both ovaries are visualized. There is normal color flow to the adnexa. There is no ovarian torsion. There is no pelvic ascites or fluid collection. Right ovary measures 2.5 x 1.2 x 2.1 cm. Left ovary measures 2.9 x 2.5 x 2.5 cm. There is a 1.5 cm dominant follicle. [facility] Medical History (Updated 05/29/24 @ 08:55 by Subhash Green MD) Uterine fibroid H/O bipolar disorder PTSD (post-traumatic stress disorder) Asthma Iron deficiency anemia due to chronic blood loss Inactive tuberculosis Hyperparathyroidism Hypoglycemia Herpes labialis History of anxiety Carpal tunnel syndrome Stroke History of major depression Abnormal uterine bleeding (AUB) Intestinal malabsorption following gastrectomy Morbid obesity with BMI of 40.0-44.9, adult Eczema HIV (human immunodeficiency virus infection) Surgical History (Updated 07/15/21 @ 09:04 by Betty Hernandez PA-C) History of tonsillectomy History of tubal ligation S/P laparoscopic cholecystectomy History of sleeve gastrectomy History of removal of laparoscopic gastric banding device History of adjustable gastric banding Family History Father Cirrhosis Mother Type 2 diabetes mellitus HTN (hypertension) Brother No problems noted. Brother No problems noted. Brother No problems noted. Sister No problems noted. Son No problems noted. Daughter No problems noted. Daughter No problems noted. Social History (Updated 05/14/24 @ 11:36 by BARBARA Briones) Alcohol intake: current Alcohol intake frequency: holidays/special occasions only Patient Tobacco Use Status: Never used Tobacco Sexual orientation: Straight/Heterosexual Gender identity: Female Physical Exam Vital Signs: Last Vital Signs BP 118/74 05/29/24 08:12 BMI result Body Mass Index 32.0 Office Procedures Endometrial Biopsy Details: The patient was counseled regarding the indication and benefits of endometrial sampling to rule out endometrial pathology including not limited to endometrial hyperplasia or endometrial cancer and others; The alternatives (Either do nothing vs. hysteroscopy D&C) & the risks were discussed with the patient including but not limited: pain, uterine perforation, bleeding, infection, possible injury to bladder, bowel, ureter, possible need for blood transfusion with all its possible risks. The patient verbalized understanding all questions answered and signed consent. Urine test done in the office was negative The patient was placed into the dorsal lithotomy position; a speculum was inserted in the vagina. Using aseptic technique for the procedure, the cervix was cleansed with Betadine. The anterior lip of the cervix was grasped with a single tooth tenaculum. The uterus was sounded to 7 cm with a 4 mm Pipelle was used. Tissues samples were obtained and placed in formalin, in a patient labeled container and sent to the pathology department. At the end of the procedure, there was minimal bleeding noted The patient tolerated the procedure well and was discharged in good condition with the following instructions: Nothing in the vagina until the bleeding stops. No sex until the bleeding stops, to call if any of the following occurs: fever (>100.4), flu-like symptoms, abdominal pain, heavy bleeding, four smelling vaginal discharge. The patient was instructed to schedule a Follow up appointment in 2 weeks to discuss pathology results of the biopsy and treatment options. This note was generated with a voice recognition program. Some errors may have been overlooked during the review of this note. Sometimes these errors may affect the content or meaning of a given sentence. [id number] Biopsy Assessment & Plan Assessment & Plan (1) Abnormal uterine bleeding (AUB): Comment: With anemia HIV positive History of stroke Code(s): N93.9 - Abnormal uterine and vaginal bleeding, unspecified Category: Medical Plan: Iron sulfate 325 mg p.o. t.i.d. recommended. recommended the patient endometrial biopsy to rule out endometrial pathology including endometrial hyperplasia or malignancy. EMB done, see procedure (2) Uterine fibroid: Code(s): D25.9 - Leiomyoma of uterus, unspecified Category: Medical Qualifiers: Uterine leiomyoma location: unspecified location Qualified Code(s): D25.9 - Leiomyoma of uterus, unspecified Plan: Discussed with the patient the findings on pelvic ultrasound & the risk of myosarcoma; discussed with the patient the options of treatment including expectant management versus hysterectomy; the pros and cons, risks benefits of each approach were discussed with the patient including the fact that in cases of myosarcoma, surgical treatment can lead to early diagnosis and positively affects the prognosis; after further discussion, the patient decided to proceed with expectant management. Will repeat pelvic ultrasound periodically. Instructions given to patient to call in case any of the following occurs: pressure symptoms, abnormal uterine bleeding, pelvic pain; and to schedule a six-months pelvic ultrasound (order placed) and a follow-up appointment . All questions answered, the patient verbalized understanding and agreed with the plan . Orders: Orders US pelvic and transvaginal 6 Months D25.9 - Leiomyoma of uterus, unspecified MM tomosynthesis screening BI Today Z12.31 - Encounter for screening mammogram for malignant neoplasm of breast AMB Endometrial Biopsy Today N93.9 - Abnormal uterine and vaginal bleeding, unspecified Coding Level of Care Code Est Pt Level 3 (15469) Procedure Only Diagnoses Abnormal uterine bleeding (AUB) N93.9 Uterine leiomyoma, unspecified location D25.9 Uterine leiomyoma location: unspecified location CPT Codes Endometrial Biopsy - CPT: 95969-[id number] Biopsy ([id number])
== END 2024-05-29 08:58 | disposition home or self-care (01) ==
PROVIDERS: PCP Internal Medicine; Visit Provider Obstetrics & Gynecology
DX: N93.9 Abnormal uterine and vaginal bleeding, unspecified (principal); D25.9 Leiomyoma of uterus, unspecified
CPT/HCPCS: 58100

== ENCOUNTER 2024-06-12 09:05 | Outpatient (AMB) | payer MEDICAID, SELFPAY ==
[2024-06-12 09:12] VITALS: BP 132/70; BMI 32.0
--- NOTE | 2024-06-12 09:12 | MHC.OFFVIS ---
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 The following workup was done.: H&H= 8.3/29.8 TSH, GC and chlamydia were negative. Endometrial biopsy pathology showed the following: Proliferative endometrium; no atypia or hyperplasia identified. Co testing was done in 12/31 was negative. Mammogram was done in 12/02 was BI-RADS 1. Pelvic ultrasound showed the following: Uterus: The uterus is anteverted and measures 9.3 x 4.9 x 6.8 cm. There is a 2.2 cm fibroid near the fundus. The double wall endometrial thickness is 1.2 mm. The uterus is smooth in contour and has normal myometrial echogenicity. No visible fibroid. Adnexa: Both ovaries are visualized. There is normal color flow to the adnexa. There is no ovarian torsion. There is no pelvic ascites or fluid collection. Right ovary measures 2.5 x 1.2 x 2.1 cm. Left ovary measures 2.9 x 2.5 x 2.5 cm. There is a 1.5 cm dominant follicle. [facility] Medical History Uterine fibroid H/O bipolar disorder PTSD (post-traumatic stress disorder) Asthma Iron deficiency anemia due to chronic blood loss Inactive tuberculosis Hyperparathyroidism Hypoglycemia Herpes labialis History of anxiety Carpal tunnel syndrome Stroke History of major depression Abnormal uterine bleeding (AUB) Intestinal malabsorption following gastrectomy Morbid obesity with BMI of 40.0-44.9, adult Eczema HIV (human immunodeficiency virus infection) Surgical History History of tonsillectomy History of tubal ligation S/P laparoscopic cholecystectomy History of sleeve gastrectomy History of removal of laparoscopic gastric banding device History of adjustable gastric banding Family History Father Cirrhosis Mother Type 2 diabetes mellitus HTN (hypertension) Brother No problems noted. Brother No problems noted. Brother No problems noted. Sister No problems noted. Son No problems noted. Daughter No problems noted. Daughter No problems noted. Social History Alcohol intake: current Alcohol intake frequency: holidays/special occasions only Patient Tobacco Use Status: Never used Tobacco Sexual orientation: Straight/Heterosexual Gender identity: Female Female Reproductive History Menstrual Date of last menstrual period: 04/08/20 Total pregnancies: 2 Full term: 2 Review of Systems Const All systems reviewed & are unremarkable except as noted in HPI and below Reports as per HPI and Reports no additional complaints Card Reports as per HPI and Reports no additional complaints Resp Reports as per HPI and Reports no additional complaints GI Reports no additional complaints Reports no additional complaints Physical Exam Vital Signs: Last Vital Signs BP 132/70 06/12/24 09:12 BMI result Body Mass Index 32.0 Const General: cooperative, healthy appearing and comfortable Resp Effort & Inspection: normal respiratory effort Auscultation: clear to auscultation bilaterally Percussion: percussion normal Cardio Palpation: normal PMI Rate: regular rate Rhythm: regular rhythm Heart sounds: no murmurs and no rubs Peripheral pulses: Peripheral pulses 2+ throughout GI Inspection: Yes normal to inspection Palpation (GI): Soft to palpation, nontender, no guarding, not rigid and No hepatosplenomegaly present Percussion: Yes normal to percussion Auscultation: normal bowel sounds Rectal Exam - Female: deferred Assessment & Plan Assessment & Plan (1) Abnormal uterine bleeding (AUB): Comment: With anemia HIV positive History of stroke Code(s): N93.9 - Abnormal uterine and vaginal bleeding, unspecified Category: Medical Plan: Discussed with the patient the results of the work up done and options of treatment including Lysteda, BCP's, Mirena IUD, endometrial ablation and hysterectomy. All pros, cons, risks and benefits if each option was discussed with the patient and the patient decided to go ahead with endometrial ablation. so a more detailed discussion about the procedure was conducted including mechanism of action, effectiveness and its potential failure rate in the coming 3-5 years, its risks (initial or future failure of AUB control, uterine perforation, infection, injury to bladder, bowel, ureter, and blood vessels, possible need for blood transfusion, inability to access the uterine cavity in order to sample the endometrial cavity to rule out endometrial pathology including endometrial cancer and others), post ablation syndrome, benefits ( hypomenorrhea, amenorrhea, ...) . The patient verbalized understanding and signed the consent. The patient was instructed to call day 1 of next cycle for scheduling Novasure endometrial ablation on day 1-10 of next cycle. In addition, the patient understands that although the endometrial ablation is not a method of control it will decrease markedly her chance of getting , but the patient has tubal ligation. The patient verbalized understanding and agreed with the plan. (2) Uterine fibroid: Code(s): D25.9 - Leiomyoma of uterus, unspecified Category: Medical Qualifiers: Uterine leiomyoma location: unspecified location Qualified Code(s): D25.9 - Leiomyoma of uterus, unspecified Plan: Discussed with the patient the findings on pelvic ultrasound & the risk of myosarcoma; discussed with the patient the options of treatment including expectant management versus hysterectomy; the pros and cons, risks benefits of each approach were discussed with the patient including the fact that in cases of myosarcoma, surgical treatment can lead to early diagnosis and positively affects the prognosis; after further discussion, the patient decided to proceed with expectant management. Will repeat pelvic ultrasound periodically. Instructions given to patient to call in case any of the following occurs: pressure symptoms, abnormal uterine bleeding, pelvic pain; and to schedule a six-months pelvic ultrasound (order placed) and a follow-up appointment . All questions answered, the patient verbalized understanding and agreed with the plan . Coding Level of Care Code Est Pt Level 3 (96148) Diagnoses Abnormal uterine bleeding (AUB) N93.9 Uterine leiomyoma, unspecified location D25.9 Uterine leiomyoma location: unspecified location
== END 2024-06-12 09:33 | disposition home or self-care (01) ==
PROVIDERS: PCP Internal Medicine; Visit Provider Obstetrics & Gynecology
DX: N93.9 Abnormal uterine and vaginal bleeding, unspecified (principal); D25.9 Leiomyoma of uterus, unspecified
CPT/HCPCS: 99213

== ENCOUNTER → 2024-06-12 09:05 | Outpatient (BNVA) | payer MEDICAID, SELFPAY | PROVIDERS: PCP Internal Medicine; Visit Provider Obstetrics & Gynecology | DX: N93.9 Abnormal uterine and vaginal bleeding, unspecified (principal); D25.9 Leiomyoma of uterus, unspecified | CPT/HCPCS: 99212 ==

== ENCOUNTER 2024-06-13 09:09 | Day surgery (SDC) | payer MEDICAID, SELFPAY ==
--- NOTE | 2024-06-10 14:26 | P.CONAN_ITS ---
Documented by User: Kenzie Potts NP 06/10/24 14:28 HPI - Anesthesia Eval Consult details Narrative: 44yo F for Uterine Ablation w/Novasure PMFSH Active Problems Active Problems: All Active Problems Uterine fibroid (Acute) Abnormal uterine bleeding (AUB) (Acute) HIV (human immunodeficiency virus infection) (Acute) History of removal of laparoscopic gastric banding device (Acute) Insomnia (Acute) Potential exposure to STD (Acute) Acute vaginitis (Acute) Intestinal malabsorption following gastrectomy (Acute) Morbid obesity with BMI of 40.0-44.9, adult (Acute) History of sleeve gastrectomy (Acute) Past Medical History Medical History Uterine fibroid H/O bipolar disorder PTSD (post-traumatic stress disorder) Asthma Iron deficiency anemia due to chronic blood loss Inactive tuberculosis Hyperparathyroidism Hypoglycemia Herpes labialis History of anxiety Carpal tunnel syndrome Stroke History of major depression Abnormal uterine bleeding (AUB) Intestinal malabsorption following gastrectomy Morbid obesity with BMI of 40.0-44.9, adult Eczema HIV (human immunodeficiency virus infection) Family History Family History Father Cirrhosis Mother Type 2 diabetes mellitus HTN (hypertension) Brother No problems noted. Brother No problems noted. Brother No problems noted. Sister No problems noted. Son No problems noted. Daughter No problems noted. Daughter No problems noted. Surgical History Surgical History History of tonsillectomy History of tubal ligation S/P laparoscopic cholecystectomy History of sleeve gastrectomy History of removal of laparoscopic gastric banding device History of adjustable gastric banding Social History Social History Are you a primary college and career counselor to a significant other at home: No Do you presently have visiting nurse or other home services: No Alcohol intake: current Alcohol intake frequency: holidays/special occasions only Patient Tobacco Use Status: Never used Tobacco Sexual orientation: Straight/Heterosexual Gender identity: Female Meds Allergies Allergy/AdvReac Type Severity Reaction Status Date / Time morphine [Morphine] Allergy Intermediate Vomiting Verified 06/13/24 09:57 iron dextran complex AdvReac Intermediate BP Verified 06/13/24 09:57 [Iron Dextran Complex] DROPPED; PURITIS Home Medications ?Medication ?Instructions ?Recorded ?Confirmed ?Last Taken ?Type dolutegravir 50 mg tablet (Tivicay) 50 mg PO DAILY 05/18/20 06/13/24 Unknown History emtricitabine 200 mg-tenofovir 1 tab PO DAILY 05/18/20 06/13/24 Unknown History disoproxil fumarate 300 mg tablet (Truvada) acetaminophen 500 mg tablet 1,000 mg PO Q6H PRN Pain, Mild 07/15/21 06/13/24 Unknown History diclofenac sodium 1 % topical gel g topical 07/15/21 07/15/21 Unknown History fluticasone propionate 50 2 spray intranasal DAILY 07/15/21 06/13/24 Unknown History mcg/actuation nasal spray,suspension hydrocortisone 0.5 % topical cream appl topical DAILY PRN Itching 07/15/21 07/15/21 Unknown History hydroxyzine HCl 25 mg tablet 25 mg PO DAILY PRN itch 07/15/21 06/13/24 Unknown History loratadine 10 mg tablet 10 mg PO DAILY PRN allergies 07/15/21 06/13/24 Unknown History melatonin 5 mg tablet 5 mg PO BEDTIME 07/15/21 06/13/24 Unknown History omeprazole 20 mg capsule,delayed 20 mg PO DAILY 07/15/21 06/13/24 Unknown History release zolpidem 10 mg tablet 10 mg PO BEDTIME PRN Insomnia 07/15/21 07/15/21 Unknown History biotin 1 mg capsule 1 mg PO DAILY 05/14/24 06/13/24 Unknown History cholecalciferol (vitamin D3) 50 50 mcg PO DAILY 05/14/24 06/13/24 Unknown Hi story mcg (2,000 unit) capsule duloxetine 30 mg capsule,delayed 30 mg PO DAILY 05/14/24 06/13/24 Unknown History release loperamide 2 mg capsule 2 mg PO Q6H PRN Diarrhea 05/14/24 06/13/24 Unknown History multivitamin 1 tab PO DAILY 05/14/24 06/13/24 Unknown History Exam Pertinent Lab Results Pertinent Lab Results: Laboratory Tests 05/26/24 09:28 WBC 6.2 Hgb 8.3 L Hct 29.8 L Plt Count 402 H D Sodium 139 Potassium 4.1 Chloride 110 H Carbon Dioxide 23 BUN 17 H Creatinine 0.89 Narrative Narrative: EKG 12/2023 Vent. Rate : 068 BPM Atrial Rate : 068 BPM P-R Int : 086 ms QRS Dur : 076 ms QT Int : 390 ms P-R-T Axes : 024 011 007 degrees QTc Int : 414 ms Sinus rhythm with short RI Otherwise normal ECG When compared with ECG of 15-JUL-2021 09:46, RI interval has decreased Assessment and Plan Assessment Anesthesia Assessment: Chart Reviewed Documented by User: Karel Amezcua MD 06/13/24 11:20 PMFSH Past Medical History Medical History Uterine fibroid H/O bipolar disorder PTSD (post-traumatic stress disorder) Asthma Iron deficiency anemia due to chronic blood loss Inactive tuberculosis Hyperparathyroidism Hypoglycemia Herpes labialis History of anxiety Carpal tunnel syndrome Stroke History of major depression Abnormal uterine bleeding (AUB) Intestinal malabsorption following gastrectomy Morbid obesity with BMI of 40.0-44.9, adult Eczema HIV (human immunodeficiency virus infection) Patient : No Family History Family History Father Cirrhosis Mother Type 2 diabetes mellitus HTN (hypertension) Brother No problems noted. Brother No problems noted. Brother No problems noted. Sister No problems noted. Son No problems noted. Daughter No problems noted. Daughter No problems noted. Family history of problems with anesthesia: No Surgical History Surgical History History of tonsillectomy History of tubal ligation S/P laparoscopic cholecystectomy History of sleeve gastrectomy History of removal of laparoscopic gastric banding device History of adjustable gastric banding History of Problems with Anesthesia: No Social History Social History Are you a primary college and career counselor to a significant other at home: No Do you presently have visiting nurse or other home services: No Alcohol intake: current Alcohol intake frequency: holidays/special occasions only Patient Tobacco Use Status: Never used Tobacco Sexual orientation: Straight/Heterosexual Gender identity: Female Meds Allergies Allergy/AdvReac Type Severity Reaction Status Date / Time morphine [Morphine] Allergy Intermediate Vomiting Verified 06/13/24 09:57 iron dextran complex AdvReac Intermediate BP Verified 06/13/24 09:57 [Iron Dextran Complex] DROPPED; PURITIS Home Medications ?Medication ?Instructions ?Recorded ?Confirmed ?Last Taken ?Type dolutegravir 50 mg tablet (Tivicay) 50 mg PO DAILY 05/18/20 06/13/24 Unknown History emtricitabine 200 mg-tenofovir 1 tab PO DAILY 05/18/20 06/13/24 Unknown History disoproxil fumarate 300 mg tablet (Truvada) acetaminophen 500 mg tablet 1,000 mg PO Q6H PRN Pain, Mild 07/15/21 06/13/24 Unknown History diclofenac sodium 1 % topical gel g topical 07/15/21 07/15/21 Unknown History fluticasone propionate 50 2 spray intranasal DAILY 07/15/21 06/13/24 Unknown History mcg/actuation nasal spray,suspension hydrocortisone 0.5 % topical cream appl topical DAILY PRN Itching 07/15/21 07/15/21 Unknown History hydroxyzine HCl 25 mg tablet 25 mg PO DAILY PRN itch 07/15/21 06/13/24 Unknown History loratadine 10 mg tablet 10 mg PO DAILY PRN allergies 07/15/21 06/13/24 Unknown History melatonin 5 mg tablet 5 mg PO BEDTIME 07/15/21 06/13/24 Unknown History omeprazole 20 mg capsule,delayed 20 mg PO DAILY 07/15/21 06/13/24 Unknown History release zolpidem 10 mg tablet 10 mg PO BEDTIME PRN Insomnia 07/15/21 07/15/21 Unknown History biotin 1 mg capsule 1 mg PO DAILY 05/14/24 06/13/24 Unknown History cholecalciferol (vitamin D3) 50 50 mcg PO DAILY 05/14/24 06/13/24 Unknown History mcg (2,000 unit) capsule duloxetine 30 mg capsule,delayed 30 mg PO DAILY 05/14/24 06/13/24 Unknown History release loperamide 2 mg capsule 2 mg PO Q6H PRN Diarrhea 05/14/24 06/13/24 Unknown History multivitamin 1 tab PO DAILY 05/14/24 06/13/24 Unknown History Exam Airway Mallampati Class: I TM Dist: >3cm Neck ROM: Full Loose/Missing/Broken Teeth: No Heart: ok Lungs: ok Assessment and Plan Assessment Anesthesia Assessment: Anesthesia Plan Discussed Final Anesthetic Review Family History of Problems with Anesthesia: No History of Problems with Anesthesia: No NPO: Yes ASA Class: III Final Preanesthetic Review: No Changes in Pt Med Stat, Meds/Allgs Chart Reviewed, Consent Obtained/Reviewed and Anes Risks/Benef Reviewed Patient Risk: Intermediate Procedure Risk: Low Anesthetic Plan Anesthetic Plan: GA and Agree w/ Assess. and Plan Disposition: Standard PACU and Extended PACU
[2024-06-13] VITALS (10 sets, daily range): BP systolic 122–147; BP diastolic 75–88; PULSE 54–72; RESP 14–18; TEMP 36.3–36.4; O2SAT 94–99; BMI 31.6
[2024-06-13 09:55] LABS: UPreg QC Valid YES; Urine Pregnancy NEGATIVE (NEGATIVE)
[2024-06-13] MEDS: Lactated Ringers 1,000 ML 100 ML IVCONT (10:11)
--- NOTE | 2024-06-13 10:55 | MHC.SHP ---
Pre-Procedural Eval Section A - 24 Hr Update-Section A only Date of Service: 06/13/24 The patient is an INPATIENT: No Changes since office visit: No Cold of Flu in the past 2 weeks, No New Medical Problems, No Changes in Medication and No Patient answered all questions The patient has been examined within 24 hours of the surgical procedure. The History & Physical has been completed within 30 days and I have reviewed it.: Yes Section B - Complete if H&P > 30 days Chief Complaint: Abnormal uterine and vaginal bleeding, Allergies: Allergies Allergy/AdvReac Type Severity Reaction Status Date / Time morphine [Morphine] Allergy Intermediate Vomiting Verified 06/13/24 09:57 iron dextran complex AdvReac Intermediate BP Verified 06/13/24 09:57 [Iron Dextran Complex] DROPPED; PURITIS Plan Diagnosis/Plan: Unchanged I have reviewed the history and physical and performed a pertinent physical examination on my patient. No changes have occurred unless specified. Time Spent With Patient Time: Total time managing care of this patient today ____ minutes.
--- NOTE | 2024-06-13 11:46 | PM.OP ---
Brief Operative Note Date of Service: 06/13/24 Pre-op diagnosis: Abnormal uterine bleeding Post-op diagnosis: same Procedure: NovaSure Endometrial Ablation Surgeon: Subhash Green MD Anesthesia: GLMA Was an Housekeeping Assistant used for this Procedure?: No Estimated blood loss (mL): 0 Pathology: none sent Condition: stable Disposition: PACU
--- NOTE | 2024-06-13 11:47 | W.PM.OPN ---
Operative Note Operative Note Date of Service: 06/13/24 Narrative: Preop diagnosis: Abnormal uterine bleeding Post Op Diagnosis: Same Op: Novasure Endometrial Ablation Anesthesia: GLMA Director Of Housing And Energy Services: None QBL: Minimal Pathology: None Complications: None Procedure: The patient was put in the dorsal lithotomy position. She was prepped and draped in the usual sterile manner. Bimanual exam prior to prepping revealed a mobile, anteverted uterus. A speculum was placed in the vagina and the anterior lip of the cervix was grasped with a single toothed tenaculum and brought forward. Taking care not to enter deep into the uterus, a sound was passed inside to measure the length of the uterus and cervix. This length was found to be 8 cm. Next, Hegar dilator was inserted into the cervical os to measure the cervical length which was 3 cm. This yielded an endometrial cavity length of 6.5 cm. A series of Hegar dilators were then inserted sequentially into the cervical os up to a size of 5 mm. The Novasure device was then opened and tested; the fan deployed easily. The instrument was set to the correct cavity length and introduced into the uterine cavity. The fan was slowly deployed with gentle movements to ensure a snug fit within the cavity. The cavity width read 4.5 cm. The measurements were imported and a cavity check was done. The trumpet was then slid down to the cervix and the device was activated. The total burn time was 91 seconds. The fan was retracted and device removed. The fan was examined and revealed charred tissue. The tenaculum was removed and the cervix examined for hemostasis which was achieved using pressure. Finally the speculum was removed. The patient tolerated the procedure well and was brought to the recovery room in a stable condition. At the end of the procedure all sponges and instruments were counted and correct. The blood loss was minimal and there were no complications.
[2024-06-13] MEDS: fentaNYL citrate/PF 100 MCG/2 ML VIAL 50 MCG IVPUSH (12:27)
[2024-06-13] MEDS: Acetaminophen 325 MG TABLET 975 MG PO (12:27)
[2024-06-13] MEDS: oxyCODONE HCl Immed Release 5 MG TABLET PO (12:28)
== END 2024-06-13 13:33 | disposition home or self-care (01) ==
PROVIDERS: PCP Internal Medicine; Visit Provider Obstetrics & Gynecology
PROC: (CPT 58353; principal; 2024-06-13 11:30)
DX: N93.9 Abnormal uterine and vaginal bleeding, unspecified (principal); N85.4 Malposition of uterus; D25.9 Leiomyoma of uterus, unspecified; B00.1 Herpesviral vesicular dermatitis; D50.0 Iron deficiency anemia secondary to blood loss (chronic); E21.3 Hyperparathyroidism, unspecified; B20 Human immunodeficiency virus [HIV] disease; Z22.7 Latent tuberculosis; J45.909 Unspecified asthma, uncomplicated; E16.2 Hypoglycemia, unspecified; F43.10 Post-traumatic stress disorder, unspecified; E66.9 Obesity, unspecified; Z68.32 Body mass index [BMI] 32.0-32.9, adult; L30.9 Dermatitis, unspecified; Z79.899 Other long term (current) drug therapy; Z88.5 Allergy status to narcotic agent; Z88.8 Allergy status to other drugs, medicaments and biological substances; Z98.84 Bariatric surgery status; Z90.49 Acquired absence of other specified parts of digestive tract; Z98.51 Tubal ligation status
CPT/HCPCS: 58353; 81025; J1100; J2003; J2250; J2405; J2704; J3010

== ENCOUNTER → 2024-06-13 09:09 | Outpatient (BNV) | payer MEDICAID, SELFPAY | PROVIDERS: PCP Internal Medicine; Visit Provider Obstetrics & Gynecology | DX: N93.9 Abnormal uterine and vaginal bleeding, unspecified (principal) | CPT/HCPCS: 58563 ==

== ENCOUNTER 2024-08-13 07:42 | Outpatient (AMB) | payer MEDICAID, SELFPAY ==
--- NOTE | 2024-08-13 07:42 | MHC.OFFVIS ---
Intake Visit Reasons: post op Allergies morphine [Morphine] Allergy (Intermediate, Verified 06/13/24 09:57) Vomiting iron dextran complex [Iron Dextran Complex] Adverse Reaction (Intermediate, Verified 06/13/24 09:57) BP DROPPED; PURITIS HPI Comments Details: The patient is presenting post Novasure Endometrial Ablation. No complaints minimal vaginal bleeding no feverishness chills or abdominal pain. [facility] Medical History (Updated 08/13/24 @ 07:45 by Subhash Green MD) Uterine fibroid H/O bipolar disorder PTSD (post-traumatic stress disorder) Asthma Iron deficiency anemia due to chronic blood loss Inactive tuberculosis Hyperparathyroidism Hypoglycemia Herpes labialis History of anxiety Carpal tunnel syndrome Stroke History of major depression Abnormal uterine bleeding (AUB) Intestinal malabsorption following gastrectomy Morbid obesity with BMI of 40.0-44.9, adult Eczema HIV (human immunodeficiency virus infection) Surgical History History of tonsillectomy History of tubal ligation S/P laparoscopic cholecystectomy History of sleeve gastrectomy History of removal of laparoscopic gastric banding device History of adjustable gastric banding Family History Father Cirrhosis Mother Type 2 diabetes mellitus HTN (hypertension) Brother No problems noted. Brother No problems noted. Brother No problems noted. Sister No problems noted. Son No problems noted. Daughter No problems noted. Daughter No problems noted. Social History Are you a primary healthcare risk control consultant to a significant other at home: No Do you presently have visiting nurse or other home services: No Alcohol intake: current Alcohol intake frequency: holidays/special occasions only Comment: pt was medicated Patient Tobacco Use Status: Never used Tobacco Sexual orientation: Straight/Heterosexual Gender identity: Female Review of Systems Const All systems reviewed & are unremarkable except as noted in HPI and below Reports as per HPI and Reports no additional complaints GI Reports no additional complaints Reports no additional complaints Telehealth Telehealth Telehealth Platform: Telephone Location of provider rendering services: practice address Location of patient: address on file Patient Identification confirmed using: Name, : Yes Telehealth method: video Patient verbally consented to treatment: Yes Patient verbally consented to billing insurance company: Yes Patient informed of any privacy concerns related to visit: Yes Minutes spent on Phone/Video with Pt.: 2 Assessment & Plan Assessment & Plan (1) Abnormal uterine bleeding (AUB): Comment: With anemia HIV positive History of stroke s/p Novasure Code(s): N93.9 - Abnormal uterine and vaginal bleeding, unspecified Category: Medical Plan: Discussed with the patient Novasure endometrial ablation intraoperative findings. In addition, discussed with the patient the expectations in the post operative period. Instruction given to patient to wait 2- 3 months and call if her menses are not satisfactory. Also discussed with the patient that although NovaSure endometrial ablation decreases the risk of , it is certainly not a method of control. All questions answered, the patient verbalized understanding and all questions answered . I spent a total of 20 minutes reviewing the chart, talking to the patient via video and documenting in the medical record. Coding Level of Care Code Tele Est Pt Level 3 (01015) Diagnoses Abnormal uterine bleeding (AUB) N93.9
--- OUTSIDE RECORDS SUMMARY | 2024-08-13 07:43 | XMS_ITS | Clinical Summary ---
Author Organization [address] [place] [address] Address [address] [place] [address] Phone Care Team Providers Care Land Sales Agent Name Role Phone Yola Hargrove DO Primary Care Provider [phone] Allergies Active Allergy Reactions Criticality Noted Date Comments Morphine 11/15/2021 Medications acetaminophen (TYLENOL) 500 mg capsule Take by mouth. Activ e CHOLECALCIFEROL, VITAMIN D3, ORAL Act williams UNABLE TO FIND Med Name: Copper 5 MG Tab Active docusate sodium (COLACE) 100 mg capsule Take 100 mg by mouth 2 times daily. Active dolutegravir (TIVICAY) 50 mg tablet Take by mouth. Activ e emtricitabine-ten ofovir alafenamide (Descovy) 200-25 mg per tablet Take by mouth. A ctive fluconazole (DIFLUCAN) 150 mg tablet Take 150 mg by mouth once. Active fluticasone propionate (FLONASE) 50 mcg/actuation nasal spray 2 Sprays by Each Nare route daily. Active hydrOXYzine HCL (ATARAX) 25 mg tablet Take 25 mg by mouth 3 times daily as needed. Active loratadine (CLARITIN) 10 mg tablet Take 10 mg by mouth daily. Active multivitamin (MULTIPLE VITAMINS ORAL) Take by mouth. Active omeprazole (PriLOSEC) [address] capsule Take 20 mg by mouth daily. Active ondansetron ODT (ZOFRAN-ODT) 4 mg disintegrating tablet TAKE 1 TABLET BY MOUTH EVERY 8 HOURS NEEDED FOR NAUSEA FOR UP TO 7 DAYS 023 Active pantoprazole (PROTONIX) 40 mg EC tablet Take 1 tablet (40 mg total) by mouth 1 (one) time each day. 10/11/2 023 Active phentermine 15 mg capsule Take 1 Capsule by mouth every morning for 30 days. Active polyethylene glycol (MIRALAX) 17 gram packet Take 1 Packet by mouth daily as needed for Constipation for up to 14 days. Active ursodioL (ACTIGALL) 300 mg capsule Take 2 Capsules by mouth daily for 180 days. Active valacyclovir HCl (VALACYCLOVIR ORAL) Take by mouth. Activ e wheat dextrin (Benefiber Clear SF, dextrin,) 3 gram/3.5 gram powder in packet Take 4 g by mouth daily. Active zolpidem (AMBIEN) 10 mg tablet Take by mouth at bedtime as needed. Active zinc glycinate 30 mg capsule Take 1 Capsule by mouth daily for 90 days. Active hydrocortisone 0.5 % topical cream Apply topically 2 times daily. Active VITAMIN A ORAL Take 1 Tablet by mouth daily for 30 days. - Oral Active nystatin (MYCOSTATIN) 100,000 unit/gram powderIndications :Symptomatic abdominal panniculus Apply topically 2 (two) times a day. 15 g 024 2024 Active ergocalciferol (VITAMIN D-2) 1,250 mcg (50,000 unit) capsule Take 1 capsule (50,000 Units total) by mouth 1 (one) time per week for 12 doses. 12 capsule 025 2024 Active ferrous sulfate 324 mg (65 mg elemental iron) EC tablet Take 1 tablet (324 mg total) by mouth 2 (two) times a day with meals. Take 1 Tablet by mouth 2 times daily for 30 days. - Oral 60 each 1 025 2024 Active zinc gluconate 50 mg tabletIndications :Postoperative malabsorption Take 1 tablet (50 mg total) by mouth 1 (one) time each day. 30 tablet 025 2025 Active diphenoxylate-atr opine (LOMOTIL) 2.5-0.025 mg per tabletIndications :Postsurgical malabsorption, not elsewhere classified Take 1 tablet by mouth 4 (four) times a day if needed for diarrhea. 20 tablet 2 Active simethicone (MYLICON) 80 mg chewable tabletIndications :Postoperative intestinal malabsorption Chew 1 tablet (80 mg total) every 6 (six) hours if needed for flatulence for up to 120 doses. 60 tablet 1 Active loperamide (IMODIUM) 2 mg capsule Take 1 Capsule by mouth 4 times daily as needed for Diarrhea for up to 30 days. 024 2024 Discontinued simethicone (MYLICON) 80 mg chewable tabletIndications :Postoperative intestinal malabsorption Chew 1 tablet (80 mg total) every 6 (six) hours if needed for flatulence for up to 60 doses. 60 tablet 1 024 2024 Discontinued(R eorder) diphenoxylate-atr opine (LOMOTIL) 2.5-0.025 mg per tabletIndications :Postsurgical malabsorption, not elsewhere classified TAKE 1 TABLET BY MOUTH FOUR TIMES DAILY NEEDED FOR DIARRHEA 20 tablet 2 025 2024 Discontinued(R eorder) Active Problems Problem Noted Date Diagnosed Date Class 1 obesity with body ma ss index (BMI) of 34.0 to 34.9 in adult 03/14/2024 Class 3 severe obesity with body mass index (BMI) of 40.0 to 44.9 in adult 03/14/2024 Encounters Date Type Department Care Team Description 07/22/2024 Telephone Bariatric Surgery [address] [phone] Bert Castañeda MD Med Refill (Diphenoxylate/simethi cone) 06/10/2024 9:15 AM EST Office Visit Bariatric Surgery [address] [phone] Bert Castañeda MD Postoperative intestinal malabsorption (Primary Dx); Symptomatic abdominal panniculus; Class 1 obesity due to excess calories with body mass index (BMI) of 31.0 to 31.9 in adult, unspecified whether serious comorbidity present from Last 3 Months Surgical History Surgery Date Site/Laterality Comments LAPAROSCOPIC GASTRIC BANDING 2016? PROCEDURE: LAP ADJUSTABLE GASTRIC BAND Medical History Medical History Date Comments HIV (human immunodeficiency virus infection) ([facility]/HCC) DX:HIV (human immunodeficien cy virus infection) (HCC) Social History Tobacco Use Types Packs/Day Years Used Date Smoking Tobacco: Never Alcohol Use Standard Drinks/Week Comments Yes 0 (1 standard drink = 0.6 oz pur e alcohol) Comments Unknown Sex and Gender Information Value Date Recorded Sex Assigned at Not on file Legal Sex Female 2:33 PM EST Gender Identity Not on file Sexual Orientation Not on file Obstetrics History Last Filed Vital Signs Vital Sign Reading Time Taken Comments Blood Pressure 122/73 06/10/2024 9:03 AM EST Pulse 66 06/10/2024 9:03 AM EST Temperature 36.6 ??C (97.8 ??F) 06/10/2024 9:03 AM ES T Respiratory Rate - - Oxygen Saturation - - Inhaled Oxygen Concentration - - Weight 73.5 kg (162 lb) 06/10/2024 9:03 AM EST Height 152.4 cm (5') 06/10/2024 9:03 AM EST Body Mass Index 31.64 06/10/2024 9:03 AM EST Plan of Treatment Upcoming Encounters Date Type Department Care Team (Late st Contact Info) Description 09/09/2024 9:15 AM EDT Office Visit Bariatric Surgery - [place] [address] [facility] [address] [place] [phone] Bert Castañeda MD [address] [facility] [address] [place] [address] Health Maintenance Due Date Last Done Comments Breast Cancer Screening 1978 Cervical Cancer Screening: Pap Smear 1999 Hepatitis B Vaccines (2 of 3 - 19+ 3-dose series) 08/29/2001 08/01/2001 Cholesterol Screening (Lipid Panel) 05/10/2022 Colorectal Cancer Screening: Colonoscopy 05/10/2022 Depression Screening 05/10/2022 HIV Screening 05/10/2022 Hepatitis C Screening 05/10/2022 Social Influencers of Health Screening 05/10/2022 COVID-19 Vaccine ( season) 2024 06/01/2022, 04/22/2021, 07/29/2020, Additional history exists DTaP,Tdap,and Td Vaccines (3 - Td or Tdap) 04/20/2031 04/20/2021, 12/05/2010 Hepatitis A Vaccines Aged Out 06/13/2011, 12/06/19 11 No longer eligible based on patient's age to complete this topic Meningococcal ACWY Vaccine Aged Out 01/23, 04/12/2017, 01/04/2017 No longer eligible based on patient's age to complete this topic Pneumococcal Vaccine: Pediatrics (0 to 5 Years) and At-Risk Patients (6 to 64 Years) Aged Out 01/24/2024, 01/04/2017, 12/25/2013, Additional history exists No longer eligible based on patient's age to complete this topic Influenza Vaccine Completed 04/17/2024, , 02/23/2022, Additional history exists HIB Vaccines Aged Out No longer eligi ble based on patient's age to complete this topic HPV Vaccines Aged Out No longer eligi ble based on patient's age to complete this topic IPV Vaccines Aged Out No longer eligi ble based on patient's age to complete this topic MMR Vaccines Aged Out No longer eligi ble based on patient's age to complete this topic Meningococcal B Vacine Aged Out No lo nger eligible based on patient's age to complete this topic RSV Immunization Patients Under 20 months Aged Out No longer eligible based on patient's age to complete this topic Varicella Vaccines Aged Out No longer eligible based on patient's age to complete this topic Procedures Procedure Name Priority Date/Time Associated Diagnosis Comments ZINC Routine 06/27/2024 8:42 AM EST Postoperative intestinal malabsorption VITAMIN D 25 HYDROXY Routine 06/27/2024 8:42 AM EST Postoperative intestinal malabsorption VITAMIN B6 Routine 06/27/2024 8:42 AM EST Postoperative intestinal malabsorption VITAMIN B12 Routine 06/27/2024 8:42 AM EST Postoperative intestinal malabsorption VITAMIN B1 Routine 06/27/2024 8:42 AM EST Postoperative intestinal malabsorption VITAMIN A Routine 06/27/2024 8:42 AM EST Postoperative intestinal malabsorption SELENIUM SERUM Routine 06/27/2024 8:42 AM EST Postoperative intestinal malabsorption IRON AND TIBC Routine 06/27/2024 8:42 AM EST Postoperative intestinal malabsorption FOLATE Routine 06/27/2024 8:42 AM EST Postoperative intestinal malabsorption COPPER, SERUM Routine 06/27/2024 8:42 AM EST Postoperative intestinal malabsorption CALCIUM Routine 06/27/2024 8:42 AM EST Postoperative intestinal malabsorption ALBUMIN Routine 06/27/2024 8:42 AM EST Postoperative intestinal malabsorption from Last 3 Months Results * (ABNORMAL) Iron and TIBC (06/27/2024 8:42 AM EST) Iron 19(L) 40 - 150 mcg/dL LAB CHEMISTRY METHOD 06/27/2024 10:41 AM EST [facility] TIBC 392 250 - 450 mcg/dL LAB CHEMISTRY METHOD 06/27/2024 10:41 AM EST [facility] Iron Saturation 5(L) 15 - 50 % LAB CHEMISTRY METHOD 06/27/2024 10:41 AM EST [facility] Blood Venous blood specimen / Unknown Venipuncture / Unknown 06/27/2024 8:42 AM EST 06/27/2024 9:22 AM EST us Bert Castañeda MD LAB BLOOD ORDERABLES Final R esult [facility] [address] [place] [address], * (ABNORMAL) Copper, serum (06/27/2024 8:42 AM EST) Copper 688(L) 810 - 1990 ug/L 07/02/2024 6:47 AM EST [facility] Comment: Copper values may be elevated to twice the normal levels in . Elevated results may be due to sample collected in a non-certified trace element-free tube. This test was developed and the performance characteristics determined by [facility]. It has not been cleared or approved by the FDA. The laboratory is regulated under CLIA as qualified to perform high-complexity testing. This test is used for patient testing purposes. It should not be regarded as investigational or for research. Test performed at [facility], [address] [place], [place] ??[address] ? [phone] Sandra Turner MD, PhD - Recording Artist Blood Venous blood specimen / Unknown Venipuncture / Unknown 06/27/2024 8:42 AM EST 06/27/2024 9:22 AM EST us Bert Castañeda MD LAB BLOOD ORDERABLES Final R esult [facility] [address] [place] [address] * (ABNORMAL) Zinc (06/27/2024 8:42 AM EST) Zinc 57(L) 60 - 130 ug/dL 06/30/2024 1:42 PM EST [facility] Comment: Elevated results may be due to sample collected in a non-certified trace element-free tube. This test was developed and the performance characteristics determined by [facility]. It has not been cleared or approved by the FDA. The laboratory is regulated under CLIA as qualified to perform high-complexity testing. This test is used for patient testing purposes. It should not be regarded as investigational or for research. Test performed at [facility], [address] [place], [place] ??[address] ? [phone] Sandra Turner MD, PhD - Recording Artist Blood Venous blood specimen / Unknown Venipuncture / Unknown 06/27/2024 8:42 AM EST 06/27/2024 9:23 AM EST us Bert Castañeda MD LAB BLOOD ORDERABLES Final R esult [facility] [address] [place] [address] * (ABNORMAL) Vitamin A (06/27/2024 8:42 AM EST) Vitamin A 35(L) 38 - 106 ug/dL 07/02/2024 6:32 AM EST [facility] Comment: This test was developed and the performance characteristics determined by [facility]. It has not been cleared or approved by the FDA. The laboratory is regulated under CLIA as qualified to perform high-complexity testing. This test is used for patient testing purposes. It should not be regarded as investigational or for research. Test performed at [facility], [address] , [place], [place] ??[address] ? [phone] Sandra Turner MD, PhD - Recording Artist Blood Venous blood specimen / Unknown Venipuncture / Unknown 06/27/2024 8:42 AM EST 06/27/2024 9:23 AM EST Betr Castañeda MD LAB BLOOD ORDERABLES Final R esult Performing Organization Address City/[facility]/ZIP Co de Phone Number [facility] [address] [place] [address] * Selenium serum (06/27/2024 8:42 AM EST) Selenium 91 63 - 160 mcg/L 07/31/2024 3:04 PM EST [facility] Comment: (Note) This test was developed and its analytical performance characteristics have been determined by [facility]. It has not been cleared or approved by the FDA. This assay has been validated pursuant to the CLIA regulations and is used for clinical purposes. [facility] [address] [facility] [employer] [facility] [address] [facility] [address] Christen Patel MD, PhD Test Performed at: [facility] [address] [facility] [address] [place], [place] ??[address] ? Lizette Patel MD, PhD Blood Venous blood specimen / Unknown Venipuncture / Unknown 06/27/2024 8:42 AM EST 06/27/2024 9:22 AM EST Bert Castañeda MD LAB BLOOD ORDERABLES Edited Result - Final [facility] [address] [place] [address] * (ABNORMAL) Vitamin D 25 hydroxy (06/27/2024 8:42 AM EST) Vit D, 25-Hydroxy 19.3(L) 30.0 - 80.0 ng/mL LAB CHEMISTRY METHOD 06/27/2024 10:23 AM EST [facility] Blood Venous blood specimen / Unknown Venipuncture / Unknown 06/27/2024 8:42 AM EST 06/27/2024 9:22 AM EST Bert Castañeda MD LAB BLOOD ORDERABLES Final R esult Performing Organization Address City/[facility]/ZIP Co de Phone Number [facility] [address] [place] [address], * (ABNORMAL) Vitamin B1 (06/27/2024 8:42 AM EST) Pathologist [facility] Vitamin B1 Whole Blood 127(H) 38 - 122 ug/L 07/02/2024 7:35 AM EST [facility] Comment: This test was developed and the performance characteristics determined by [facility]. It has not been cleared or approved by the FDA. The laboratory is regulated under CLIA as qualified to perform high-complexity testing. This test is used for patient testing purposes. It should not be regarded as investigational or for research. Test performed at [facility], [address] , [place], [place] ??[address] ? [phone] Sandra Turner MD, PhD - Recording Artist Blood Venous blood specimen / Unknown Venipuncture / Unknown 06/27/2024 8:42 AM EST 06/27/2024 9:23 AM EST Bert Castañeda MD LAB BLOOD ORDERABLES Final R esult [facility] [address] [place] [address] * Vitamin B6 (06/27/2024 8:42 AM EST) Pathologist [facility] Vitamin B6 (Pyridoxine) Level 27 5 - 50 ug/L 07/01/2024 1:38 PM EST [facility] Comment: This test was developed and the performance characteristics determined by [facility]. It has not been cleared or approved by the FDA. The laboratory is regulated under CLIA as qualified to perform high-complexity testing. This test is used for patient testing purposes. It should not be regarded as investigational or for research. Test performed at [facility], [address] [place], [place] ??[address] ? [phone] Sandra Turner MD, PhD - Recording Artist Blood Venous blood specimen / Unknown Venipuncture / Unknown 06/27/2024 8:42 AM EST 06/27/2024 9:22 AM EST Bert Castañeda MD LAB BLOOD ORDERABLES Final R esult Performing Organization Address City/[facility]/ZIP Co de Phone Number [facility] [address] [place] [address] * (ABNORMAL) Folate (06/27/2024 8:42 AM EST) Pathologist [facility] Folate >20.0(H) 2.8 - 17.0 ng/ml LAB CHEMISTRY METHOD 06/27/2024 10:41 AM EST [facility] Blood Venous blood specimen / Unknown Venipuncture / Unknown 06/27/2024 8:42 AM EST 06/27/2024 9:22 AM EST Bert Castañeda MD LAB BLOOD ORDERABLES Final R esult Performing Organization Address City/[facility]/ZIP Co de Phone Number [facility] [address] [place] [address], [place] [phone] * Vitamin B12 (06/27/2024 8:42 AM EST) Vitamin B-12 346 250 - 900 pcg/mL LAB CHEMISTRY METHOD 06/27/2024 10:41 AM EST [facility] Blood Venous blood specimen / Unknown Venipuncture / Unknown 06/27/2024 8:42 AM EST 06/27/2024 9:22 AM EST Bert Castañeda MD LAB BLOOD ORDERABLES Final R esult Performing Organization Address [facility] Co de Phone Number [facility] [address] [place] [address], [place] [phone] * (ABNORMAL) Calcium (06/27/2024 8:42 AM EST) Calcium 8.4(L) 8.5 - 10.5 mg/dL LAB CHEMISTRY METHOD 06/27/2024 10:16 AM EST [facility] Blood Venous blood specimen / Unknown Venipuncture / Unknown 06/27/2024 8:42 AM EST 06/27/2024 9:22 AM EST Bert Castañeda MD LAB BLOOD ORDERABLES Final R esult Performing Organization Address City/[facility]/ZIP Co de Phone Number [facility] [address] [place] [address], [place] [phone] * Albumin (06/27/2024 8:42 AM EST) Albumin 3.2 3.2 - 5.0 g/dL LAB CHEMISTRY METHOD 06/27/2024 10:16 AM EST [facility] Blood Venous blood specimen / Unknown Venipuncture / Unknown 06/27/2024 8:42 AM EST 06/27/2024 9:22 AM EST us Bert Castañeda MD LAB BLOOD ORDERABLES Final [facility] [address] [place] [address], from Last 3 Months Insurance MEDICAID - [place] Care Teams Land Sales Agent Relationship Specialty Start Date End Date Yola Hargrove DO PCP - General Rheumatology 09/14/17
--- OUTSIDE RECORDS SUMMARY | 2024-08-13 07:43 | XMS_ITS | Encounter Summary ---
Author Organization [facility] Address [address] [place] [address] Care Team Providers Care Tax Compliance Officer Name Role Phone Yola Hargrove Primary Care Provider [phone] Reason for Visit * Reason Onset Date Comments Med Refill 07/22/2024 Diphenoxylatesim ethicone Encounter Details Date Type Department Care Team (Late Contact Info) Description 07/22/2024 Telephone Bariatric Surgery [facility] [address] [phone] Bert Castañeda MD [address] [address] Med Refill (Diphenoxylate/simethic one) Social History Tobacco Use Types Packs/Day Years Used Date Smoking Tobacco: Never Alcohol Use Standard Drinks/Week Comments Yes 0 (1 standard drink = 0.6 oz pur e alcohol) Comments Unknown Sex and Gender Information Value Date Recorded Sex Assigned at Not on file Legal Sex Female 2:33 PM EST Gender Identity Not on file Sexual Orientation Not on file documented as of this encounter Progress Notes * Gita Lopez - 07/22/2024 3:17 PM EST Patient called to request refills of Diphenoxylate and Simethicone documented in this encounter Plan of Treatment Upcoming Encounters Date Type Department Care Team ([facility] Contact Info) Description 09/09/2024 9:15 AM EDT Office Visit Bariatric Surgery [facility] [address] [phone] Bert Castañeda MD [address] [place] [address] documented as of this encounter Visit Diagnoses Not on filedocumented in this encounter Care Teams Tax Compliance Officer Relationship Specialty Start Date End Date Yola Hargrove DO PCP - General Rheumatology 09/14/17 documented as of this encounter
== END 2024-08-13 08:02 | disposition home or self-care (01) ==
LOC: HO.HWS 07:42
PROVIDERS: PCP Internal Medicine; Visit Provider Obstetrics & Gynecology
DX: N93.9 Abnormal uterine and vaginal bleeding, unspecified (principal)
CPT/HCPCS: 99213

== ENCOUNTER 2024-11-25 07:58 | Outpatient (REF) | payer MEDICAID, SELFPAY ==
--- NOTE | ~2024-11-25 | US_ITS ---
CLINICAL HISTORY: D25.9 - Leiomyoma of uterus, unspecified,FIBROIDS --- Additional Notes or Special I nstructions: 6 months for stability US pelvis transabdominal and transvaginal with Doppler Comparison: None provided Findings: Transabdominal scanning performed for overall anatomy. Transvaginal scanning performed for additional detail. Uterus is 8.4 cm length. 2.2 x 1.8 x 2.3 cm fibroid, previously 2.2 x 1.2 x 2.1 cm. No endometrial lesion, 5 mm thickness. Right ovary 2.2 x 1.6 x 2.5 cm. 1.9 x 1.7 x 1.4 cm complex lesion. Left ovary 2.7 x 1.9 x 1.3 cm. Normal color Doppler with arterial/venous spectral tracing of both ovaries. No free fluid. IMPRESSION: Stable uterine fibroid. Complex lesion of the right ovary. Ultrasound follow-up in 2 months as indicated. This document has been electronically signed by: Karis Khalil MD on 11/25/2024 14:32:56
--- NOTE | ~2024-11-25 | MM_ITS ---
EXAMINATION: MM SCREENING DIGITAL BREAST TOMOSYNTHESIS, BILATERAL CLINICAL INFORMATION: Screening. Asymptomatic. COMPARISON: Mammography: Comparison is made with available priors TECHNIQUE: Digital breast mammography with tomosynthesis is performed in both the craniocaudal and mediolateral oblique views along with computer-aided detection (CAD). FINDINGS: There are scattered areas of fibroglandular density (ACR BI-RADS breast composition Category b). There are no significant masses, abnormal calcifications, or other abnormalities. MM/MM tomosynthesis screening BI IMPRESSION: No mammographic evidence of malignancy. ASSESSMENT: BI-RADS BI-RADS 1 - Negative RECOMMENDATION: Routine annual mammography screening. 1 year F/U This examination should not preclude the clinical evaluation of a suspicious palpable abnormality. This patient's information was entered into a reminder system with a target due date for their next mammogram. Electronically signed by: Penny Romero DO 11/30/2024 09:37 PM EDT
[2024-11-25 11:46] LABS: MANUAL DIFF FLAG NO
[2024-11-25 11:56] LABS: Basophils Percent Auto 0.7 % (0-2); Eosinophils Percent Auto 0.5 % (0-4); Hematocrit 36.4 % (37.0-47.0); Hemoglobin 11.6 g/dl (12.0-16.0); Imm Gran Abs Auto 0.02 X10*3/uL (0.00-0.03); Imm Gran Pct Auto 0.3 % (0.0-0.4); Lymphocytes Absolute Auto 2.4 X10*3/uL (1.2-4.9); Lymphocytes Percent Auto 41.5 % (20-40); Mean Corpuscular HGB Conc 31.9 g/dl (31.0-35.0); Mean Corpuscular Volume 94.1 fL (80.0-98.0); Mean Platelet Volume 12.5 fL (9.4-12.3); Monocytes Absolute Auto 0.3 X10*3/uL (0.1-1.2); Monocytes Percent Auto 5.3 % (2-11); Neutrophils Percent Auto 51.7 % (45-73); Platelet Count 273 X10*3/uL (160-400); Red Blood Count 3.87 X10*6/uL (4.20-5.50); Red Cell Distribution Width 16.4 % (11.0-16.0); White Blood Count 5.9 X10*3/uL (4.8-10.8)
[2024-11-25 12:25] LABS: Alanine Aminotransferase 40 U/L (0-31); Albumin Level 3.1 g/dL (3.5-5.0); Alkaline Phosphatase 111 U/L (39-117); Anion Gap 10 (12-20); Aspartate Amino Transferase 47 U/L (5-31); Bilirubin Total 0.5 mg/dL (0.0-1.0); Blood Urea Nitrogen 16 mg/dL (9-16); Calcium 8.4 mg/dL (8.4-10.2); Carbon Dioxide 24 mmol/L (22-29); Chloride 111 mmol/L (96-108); Estimated Glomerular Filt Rate 57; Ferritin 13 ng/mL (10-250); Glucose Random 64 mg/dL (60-115); Hemoglobin A1c % < 4.0 % (<6.0); Phosphorus 3.7 mg/dL (2.7-4.5); Potassium 4.2 mmol/L (3.3-5.1); Sodium 141 mmol/L (135-145); TSH reflex Free T4 2.61 uIU/mL (0.32-4.0); Total Protein 6.3 g/dL (6.5-8.0); Vitamin D 25-OH Total 23.3 ng/mL (>30)
[2024-11-25 12:31] LABS: Parathyroid Hormone Intact 186.7 pg/mL (8.7-77.1)
[2024-11-26 15:09] LABS: HIV RNA PCR Qn Copies 42 copies/mL (NOT DETECTED); HIV RNA PCR Qn Log Copies 1.62 (NOT DETECTED)
[2024-11-26 16:03] LABS: Calcium, Ionized 5.2 mg/dL (4.7-5.5)
[2024-11-28 05:43] LABS: TS Negative Control Passed; TS Panel A 0; TS Panel B 0; TS Positive Control Passed; TSpotTB Negative (Negative)
[2024-11-29 16:37] LABS: Absolute CD3 Count 1675 cells/uL (840-3060); Absolute CD4 Count 677 cells/uL (490-1740); Absolute CD8 Count 1005 cells/uL (180-1170); Absolute Lymphocytes 2388 cells/uL (850-3900); CD4 CD8 Ratio 0.67 (0.86-5.00); Percent CD3 Cells 70 % (57-85); Percent CD4 Cells 28 % (30-61); Percent CD8 Cells 42 % (12-42)
== END 2024-11-25 07:59 | disposition home or self-care (01) ==
LOC: HO.US 07:58
PROVIDERS: Internal Medicine; PCP Internal Medicine; Referring Provider Internal Medicine; Visit Provider Internal Medicine
DX: Z12.31 Encounter for screening mammogram for malignant neoplasm of breast (principal); D25.9 Leiomyoma of uterus, unspecified; N83.8 Other noninflammatory disorders of ovary, fallopian tube and broad ligament; Z02.1 Encounter for pre-employment examination; E21.3 Hyperparathyroidism, unspecified; R53.83 Other fatigue; N93.8 Other specified abnormal uterine and vaginal bleeding; B20 Human immunodeficiency virus [HIV] disease
CPT/HCPCS: 36415; 76830; 76856; 77063; 77067; 80053; 82306; 82330; 82728; 83036; 83970; 84100; 84443; 85025; 86359; 86360; 86481; 87536

== ENCOUNTER → 2024-11-25 13:00 | Outpatient (BNV) | payer MEDICAID, SELFPAY | PROVIDERS: PCP Internal Medicine; Referring Provider Internal Medicine; Visit Provider Nuclear Medicine | DX: Z12.31 Encounter for screening mammogram for malignant neoplasm of breast (principal) | CPT/HCPCS: 77063; 77067 ==

== ENCOUNTER 2024-12-09 11:51 | Outpatient (REF) | payer MEDICAID, SELFPAY ==
--- OUTSIDE RECORDS SUMMARY | 2024-12-09 13:02 | XMS_ITS | Clinical Summary ---
Author Organization [address] [place] [address] Address [address] [place] [address] Phone Care Team Providers Care Air Tester Name Role Phone AdamYola abbott Primary Care Provider [phone] Allergies Active Allergy Reactions Criticality Noted Date Comments Morphine 11/15/2021 Medications acetaminophen (TYLENOL) 500 mg capsule Take by mouth. Activ e CHOLECALCIFEROL, VITAMIN D3, ORAL Act williams UNABLE TO FIND Med Name: Copper 5 MG Tab Active docusate sodium (COLACE) 100 mg capsule Take 100 mg by mouth 2 times daily. Active dolutegravir (TIVICAY) 50 mg tablet Take by mouth. Activ e emtricitabine-teno fovir alafenamide (Descovy) 200-25 mg per tablet Take [...] multivitamin (MULTIPLE VITAMINS ORAL) Take by mouth. Activ e omeprazole (PriLOSEC) [address] capsule Take 20 mg by mouth daily. Active ondansetron ODT (ZOFRAN-ODT) 4 mg disintegrating tablet TAKE 1 TABLET BY MOUTH EVERY 8 HOURS NEEDED FOR NAUSEA FOR UP TO 7 DAYS 12/21/19 23 Active pantoprazole (PROTONIX) 40 mg EC tablet Take 1 tablet (40 mg total) by mouth 1 (one) time each day. 03/21/20 23 Active phentermine 15 mg capsule Take 1 Capsule by mouth every morning for 30 days. 07/17/19 24 Active polyethylene glycol (MIRALAX) 17 gram packet Take 1 Packet by mouth daily as needed for Constipation for up to 14 days. 11/24/19 23 Active ursodioL (ACTIGALL) 300 mg capsule Take 2 Capsules by mouth daily for 180 days. 11/24/19 23 Active valacyclovir HCl (VALACYCLOVIR ORAL) Take by mouth. Activ e wheat dextrin (Benefiber Clear SF, dextrin,) 3 gram/3.5 gram powder in packet Take 4 g by mouth daily. 11/24/19 23 Active zolpidem (AMBIEN) 10 mg tablet Take by mouth at bedtime as needed. Active zinc glycinate 30 mg capsule Take 1 Capsule by mouth daily for 90 days. 07/17/19 24 Active hydrocortisone 0.5 % topical cream Apply topically 2 times daily. Active VITAMIN A ORAL Take 1 Tablet by mouth daily for 30 days. - Oral Active nystatin (MYCOSTATIN) 100,000 unit/gram powderIndications: Symptomatic abdominal panniculus Apply topically 2 (two) times a day. 15 g 06/10/20 24 025 Active zinc gluconate 50 mg tabletIndications: Postoperative malabsorption Take 1 tablet (50 mg total) by mouth 1 (one) time each day. 30 tablet 07/01/19 25 026 Active simethicone (MYLICON) 80 mg chewable tabletIndications: Postoperative intestinal malabsorption CHEW and SWALLOW 1 TABLET BY MOUTH EVERY 6 HOURS NEEDED FOR GAS 60 tablet 1 09/12/19 25 Active diphenoxylate-atro pine (LOMOTIL) 2.5-0.025 mg per tabletIndications: Postsurgical malabsorption, not elsewhere classified TAKE 1 TABLET FOUR TIMES DAILY NEEDED FOR DIARRHEA 20 tablet 2 10/11/19 25 Active Active Problems Problem Noted Date Diagnosed Date Class 1 obesity with body ma ss index (BMI) of 34.0 to 34.9 in adult 03/14/2024 Class 3 severe obesity with body mass index (BMI) of 40.0 to 44.9 in adult (CMS/FORMERLY [facility] V24, CMS/[facility]ER[facility] V28) 03/14/2024 Encounters Date Type Department Care Team Description 09/19/2024 Telephone Bariatric Surgery - [address] [place] [phone] Bert Castañeda MD Advice Only (simethicone (MYLICON) 80 mg chewable tablet ) from Last 3 Months Surgical History Surgery Date Site/Laterality Comments LAPAROSCOPIC GASTRIC BANDING 2017? PROCEDURE: LAP ADJUSTABLE GASTRIC BAND Medical History Medical History Date Comments HIV (human immunodeficiency virus infection) (CMS/HCC V24, CMS/HCC V28) DX:HIV (human im munodeficiency virus infection) (FORMERLY [facility]) Social History Tobacco Use Types Packs/Day Years [...] 66 06/10/2024 9:03 AM EST Temperature 36.6 C (97.8 F) 06/10/2024 9:03 AM EST Respiratory Rate - - Oxygen Saturation - - Inhaled Oxygen Concentration - - Weight 73.5 kg (162 lb) 06/10/2024 9:03 AM EST Height 152.4 cm (5') 06/10/2024 9:03 AM EST Body Mass Index 31.64 06/10/2024 9:03 AM EST Plan of Treatment Upcoming Encounters Date Type Department Care Team ([facility] Contact Info) Description 01/06/2025 11:00 AM EDT Office Visit Bariatric Surgery - [place] [address] [phone] Bert Castañeda MD [address] [address] Health Maintenance Due Date Last Done Comments [...] age to complete this topic Meningococcal B Vaccine Aged Out No l onger eligible based on patient's age to complete this topic RSV Immunization Patients Under 20 months Aged Out No longer eligible based on patient's age to complete this topic Varicella Vaccines Aged Out No longer eligible based on patient's age to complete this topic Insurance [place] - [place] Care Teams Air Tester Relationship Specialty Start Date End Date Yola Hargrove DO PCP - General Rheumatology 09/14/17
[2024-12-09 13:38] LABS: Anion Gap 10 (12-20); Blood Urea Nitrogen 16 mg/dL (9-16); Calcium 7.6 mg/dL (8.4-10.2); Carbon Dioxide 21 mmol/L (22-29); Chloride 113 mmol/L (96-108); Estimated Glomerular Filt Rate 58; Potassium 3.9 mmol/L (3.3-5.1); Sodium 140 mmol/L (135-145)
== END 2024-12-09 11:52 | disposition home or self-care (01) ==
LOC: HO.HHCL 11:51
PROVIDERS: PCP Internal Medicine; Visit Provider Internal Medicine
DX: R53.83 Other fatigue (principal)
CPT/HCPCS: 36415; 80048

== ENCOUNTER 2024-12-23 08:10 | Outpatient (REF) | payer MEDICAID, SELFPAY ==
[2024-12-23 14:23] LABS: Anion Gap 9 (12-20); Blood Urea Nitrogen 16 mg/dL (9-16); Calcium 8.3 mg/dL (8.4-10.2); Carbon Dioxide 24 mmol/L (22-29); Chloride 112 mmol/L (96-108); Estimated Glomerular Filt Rate 54; Potassium 4.0 mmol/L (3.3-5.1); Sodium 141 mmol/L (135-145)
[2024-12-23 14:39] LABS: Parathyroid Hormone Intact 256.2 pg/mL (8.7-77.1)
== END 2024-12-23 08:11 | disposition home or self-care (01) ==
LOC: HO.HHCL 08:10
PROVIDERS: PCP Internal Medicine; Visit Provider Obstetrics & Gynecology
DX: E55.9 Vitamin D deficiency, unspecified (principal); E21.3 Hyperparathyroidism, unspecified
CPT/HCPCS: 36415; 80048; 82306; 83970; 84100; 84443

== ENCOUNTER 2024-12-23 08:10 | Outpatient (AMB) | payer MEDICAID, SELFPAY ==
--- NOTE | 2024-12-23 08:10 | A.OFFVIS_ITS ---
Intake Visit Reasons: US follow up Allergies morphine (Morphine) Allergy (Intermediate, Verified 06/13/24 09:57) Vomiting iron dextran complex (Iron Dextran Complex) Adverse Reaction (Intermediate, Verified 06/13/24 09:57) BP DROPPED; PURITIS HPI Comments Details: The patient is scheduled tele health visit for ultrasound follow-up regarding myomas. No complaints. Pelvic ultrasound done recently showed the following: Findings: Transabdominal scanning performed for overall anatomy. Transvaginal scanning performed for additional detail. Uterus is 8.4 cm length. 2.2 x 1.8 x 2.3 cm fibroid, previously 2.2 x 1.2 x 2.1 cm. No endometrial lesion, 5 mm thickness. Right ovary 2.2 x 1.6 x 2.5 cm. 1.9 x 1.7 x 1.4 cm complex lesion. Left ovary 2.7 x 1.9 x 1.3 cm. Normal color Doppler with arterial/venous spectral tracing of both ovaries. No free fluid. [facility] Medical History Uterine fibroid H/O bipolar disorder PTSD (post-traumatic stress disorder) Asthma Iron deficiency anemia due to chronic blood loss Inactive tuberculosis Hyperparathyroidism Hypoglycemia Herpes labialis History of anxiety Carpal tunnel syndrome Stroke History of major depression Abnormal uterine bleeding (AUB) Intestinal malabsorption following gastrectomy Morbid obesity with BMI of 40.0-44.9, adult Eczema HIV (human immunodeficiency virus infection) Surgical History History of tonsillectomy History of tubal ligation S/P laparoscopic cholecystectomy History of sleeve gastrectomy History of removal of laparoscopic gastric banding device History of adjustable gastric banding Family History Father Cirrhosis Mother Type 2 diabetes mellitus HTN (hypertension) Brother No problems noted. Brother No problems noted. Brother No problems noted. Sister No problems noted. Son No problems noted. Daughter No problems noted. Daughter No problems noted. Social History Are you a primary direct care professional to a significant other at home: No Do you presently have visiting nurse or other home services: No Alcohol intake: current Alcohol intake frequency: holidays/special occasions only Comment: pt was medicated Patient Tobacco Use Status: Never used Tobacco Sexual orientation: Straight/Heterosexual Gender identity: Female Review of Systems Const All systems reviewed & are unremarkable except as noted in HPI and below Reports as per HPI and Reports no additional complaints GI Reports no additional complaints Reports no additional complaints Telehealth Telehealth Telehealth Platform: Telephone Location of provider rendering services: practice address Location of patient: address on file Patient Identification confirmed using: Name, : Yes Telehealth method: video Patient verbally consented to treatment: Yes Patient verbally consented to billing insurance company: Yes Patient informed of any privacy concerns related to visit: Yes Minutes spent on Phone/Video with Pt.: 4 Assessment & Plan Assessment & Plan (1) Uterine fibroid: Code(s): D25.9 - Leiomyoma of uterus, unspecified Category: Medical Qualifiers: Uterine leiomyoma location: unspecified location Qualified Code(s): D25.9 - Leiomyoma of uterus, unspecified Plan: Discussed with the patient the findings on pelvic ultrasound & the risk of myosarcoma; in addition reviewed with the patient that malignancy and pre malignancy cannot be ruled out without hysterectomy for pathological evaluation ; furthermore, explained to the patient the limitation of pelvic ultrasound and endometrial biopsy in the setting. Discussed with the patient the options of treatment including expectant management versus hysterectomy; the pros and cons, risks benefits of each approach were discussed with the patient including the fact that in cases of myosarcoma, surgical treatment can lead to early diagnosis and positively affects the prognosis; after further discussion, the patient decided to proceed with expectant management. Will repeat pelvic ultrasound periodically. Instructions given to patient to call in case any of the following occurs: pressure symptoms, abnormal uterine bleeding, pelvic pain; and to schedule a 3- months pelvic ultrasound (order placed) and a follow-up appointment . All questions answered, the patient verbalized understanding and agreed with the plan . (2) Complex ovarian cyst: Code(s): N83.299 - Other ovarian cyst, unspecified side Category: Medical Plan: Discussed with the patient the complex ovarian cyst by ultrasound. Discussed with the patient the Ultrasound findings, the main limitation of transvaginal ultrasonography alone as a diagnostic tool to distinguish benign from malignant masses relates to its lack of specificity and low positive predictive value for cancer. The differential diagnosis discussed with the patient includes the following but not limited to: benign and malignant gynecological and non-gynecological causes. Laboratory evaluation include UPT and GC/CT , serum tumor marker CA 125 . Discussed with the patient that CA 125 is a protein associated with epithelial ovarian malignancies, but also frequently expressed at lower levels by nonmalignant tissue. Elevation of CA 125 levels may occur in nonmalignant gynecologic conditions, and in non-gynecologic cancers, It is most useful in postmenopausal women and in identifying non mucinous epithelial cancer. The CA 125 level is elevated in 80% of patients with epithelial ovarian cancer but in only 50% of patients with stage I disease. The overall sensitivity of CA 125 testing in distinguishing benign from malignant adnexal masses reportedly ranges from 61% to 90%; discussed with the patient the specificity, positive predictive value and negative predictive value. Discussed with the patient options of treatment , in case CA 125 is not elevated, including laparoscopy ovarian cystectomy/oophorectomy vs. expectant management with repeat US in repeating pelvic US in 6-12 weeks from previous US. If the ovarian complex cyst is persistent larger and / or more complex looking, or higher CA 125 will refer to gynecologic Oncology. All pros, cons, risks and benefits of each approach were discussed with the patient including but not limited to a delay in the diagnosis and treatment of ovarian cancer affecting the prognosis; The patient decided to go ahead with expectant management. Instructions given the patient to schedule a 3 months follow-up ultrasound appointment. All questions were answered & the patient verbalized understanding and agreed with the plan. I spent a total of 20 minutes reviewing the chart, talking to the patient via video and documenting in the medical record. Orders: Orders US pelvic and transvaginal 3 Months D25.9 - Leiomyoma of uterus, unspecified, N83.299 - Other ovarian cyst, unspecified side CA-125 Today N83.299 - Other ovarian cyst, unspecified side Coding Level of Care Code Tele Est Pt Level 3 (43725) Diagnoses Uterine leiomyoma, unspecified location D25.9 Uterine leiomyoma location: unspecified location Complex ovarian cyst N83.299
--- OUTSIDE RECORDS SUMMARY | 2024-12-23 08:12 | XMS_ITS | Clinical Summary ---
Author Organization [address] [place] [address] Address [address] [place] [address] Phone Care Team Providers Care Commercial Lines Account Manager Name Role Phone AdamYola abbott Primary Care Provider [phone] Allergies Active Allergy Reactions Criticality Noted Date [...] (BMI) of 40.0 to 44.9 in adult (CMS/HCC V24, CMS/HCC V28) 03/14/2024 Surgical History Surgery Date Site/Laterality Comments LAPAROSCOPIC GASTRIC BANDING 2016? PROCEDURE: LAP ADJUSTABLE GASTRIC BAND Medical History Medical History Date Comments HIV (human immunodeficiency virus infection) (CMS/HCC V24, CMS/HCC V28) DX:HIV (human im munodeficiency virus infection) (HCC) Social History Tobacco Use [...] Care Team (Late st Contact Info) Description 01/06/2025 11:00 AM EDT Office Visit Bariatric Surgery - [place] 175 [facility] [address] [place] [phone] Bert Castañeda MD [address] [facility] [address] [place] [address] Health Maintenance Due Date Last Done Comments [...] 2024 06/01/2022, 04/22/2021, 07/29/2020, Additional history exists Influenza Vaccine (#1) 2025 , 03/06/2023, 02/23/2022, Additional history exists DTaP,Tdap,and Td Vaccines (3 [...] 5 Years) and At-Risk Patients (6 to 49 Years) Aged Out 01/24/2024, 01/04/2017, 12/25/2013, Additional history exists No longer eligible based on patient's age to complete this topic HIB Vaccines Aged Out No longer eligi [...] to complete this topic Insurance [place]ICA[place] - [place] Care Teams Commercial Lines Account Manager Relationship Specialty Start Date End Date Yola Hargrove DO PCP - General Rheumatology 09/14/17
== END 2024-12-23 08:47 | disposition home or self-care (01) ==
LOC: HO.HWS 08:10
PROVIDERS: PCP Internal Medicine; Visit Provider Obstetrics & Gynecology
DX: D25.9 Leiomyoma of uterus, unspecified (principal); N83.299 Other ovarian cyst, unspecified side
CPT/HCPCS: 99213

== ENCOUNTER 2025-01-06 11:21 | Outpatient (REF) | payer MEDICAID, SELFPAY ==
--- OUTSIDE RECORDS SUMMARY | 2025-01-06 11:00 | XMS_ITS | Encounter Summary ---
Author Organization [facility] Address [address] [place] [address] Care Team Providers Care Rn Clinician Name Role Phone Yola Hargrove Primary Care Provider [phone] Reason for Visit * Reason Comments Follow-up 3 month Encounter Details Date Type Department Care Team ([facility] Contact Info) Description 01/06/2025 11:00 AM EDT Office Visit Bariatric Surgery - [place] 175 [facility] [address] [place] [phone] Bert Castañeda MD 175 [facility] [address] [place] [address] Overweight (Primary Dx); Postsurgical malabsorption, not elsewhere classified; Symptomatic abdominal panniculus Social History Tobacco Use Types Packs/Day Years [...] on file documented as of this encounter Last Filed Vital Signs Vital Sign Reading Time Taken Comments Blood Pressure 137/76 01/06/2025 10:31 AM EDT Pulse 94 01/06/2025 10:31 AM EDT Temperature 36.6 C (97.8 F) 01/06/2025 10:31 AM EDT Respiratory Rate - - Oxygen Saturation - - Inhaled Oxygen Concentration - - Weight 64.9 kg (143 lb) 01/06/2025 10:31 AM EDT Height 152.4 cm (5') 01/06/2025 10:31 AM EDT Body Mass Index 27.93 01/06/2025 10:31 AM EDT documented in this encounter Ordered Prescriptions Prescription Sig Dispense Quantity Refills Last Filled Start Date End Date nystatin (MYCOSTATIN) 100,000 unit/gram powderIndications: Symptomatic abdominal panniculus Apply topically 2 (two) times a day. 15 g 01/06/2025 6 diphenoxylate-atro pine (LOMOTIL) 2.5-0.025 mg per tabletIndications: Postsurgical malabsorption, not elsewhere classified Take 2 tablets by mouth 4 (four) times a day if needed for diarrhea for up to 30 doses. Max Daily Amount: 8 tablets 20 tablet 2 01/06/2025 documented in this encounter Progress Notes * Bert Castañeda MD - 01/06/2025 11:00 AM EDT Ms. Mary is a 45 y.o. year old female who presents for surgical follow up regarding obesity. HPI: Ms. Mary FLIP. 73 lbs since last January. Diarrhea. BMI is 27.93. Continues with rash in the crease of the lower abdomen. Using Nystatin powder. ROS: GENERAL: No malaise, significant unintentional weight loss, fever, chills or night sweats. HEENT: No changes in hearing or vision, no nose bleeds or other nasal problems. NECK: No lumps, goiter, pain or significant neck swelling RESPIRATORY: No cough, wheezing or shortness of breath CARDIOVASCULAR: No chest pain, leg swelling or palpitations. GI: diarrhea. : No dysuria, frequency or incontinence. SKIN: rash and itching lower abdomen crease. HEMATOLOGY: No prolonged bleeding, easy bruisability. LYMPHOLOGY No swollen nodes. MUSCULOSKELETAL: No abnormalities. NEURO: No abnormalities. All other systems reviewed which are negative. PAST MEDICAL HISTORY: Patient Active Problem List Diagnosis Date Noted Date Diagnosed Class 1 obesity with body mass index (BMI) of 34.0 to 34.9 in adult 03/14/2024 Class 3 severe obesity with body mass index (BMI) of 40.0 to 44.9 in adult (CMS/HCC V24, CMS/FORMERLY [facility] V28) 03/14/2024 PAST SURGICAL HISTORY: Past Surgical History: Procedure Laterality Date LAPAROSCOPIC GASTRIC BANDING 2017? PROCEDURE: LAP ADJUSTABLE GASTRIC BAND SOCIAL HISTORY: Social History Tobacco Use Smoking status: Never Smokeless tobacco: Not on file Substance Use Topics Alcohol use: Yes FAMILY HISTORY: No family history on file. No family status information on file. MEDICATIONS: Medications Discontinued During This Encounter Medication Reason diphenoxylate-atropine (LOMOTIL) 2.5-0.025 mg per tablet Reorder ACTIVE MEDICATIONS: Outpatient Medications Marked as Taking for the 01/06/25 encounter (Office Visit) with Bert Castañeda MD Medication Sig Dispense Refill diphenoxylate-atropine (LOMOTIL) 2.5-0.025 mg per tablet Take 2 tablets by mouth 4 (four) times a day if needed for diarrhea for up to 30 doses. Max Daily Amount: 8 tablets 20 tablet 2 ALLERGIES: Allergies Allergen Reactions Morphine PHYSICAL EXAM: Visit Vitals BP 137/76 Pulse 94 Temp 36.6 ??C (97.8 ??F) (Temporal) Ht 1.524 m (60 ) Wt 64.9 kg (143 lb) BMI 27.93 kg/m?? Smoking Status Never BSA 1.62 m?? APPEARANCE: Alert and oriented and in no acute distress EYES: Conjunctiva normal and sclera normal and anicteric. NECK: Neck supple with no adenopathy. HEART: RRR with normal S 1 and S 2, no murmurs, no gallops. LUNG: Clear to auscultation LYMPH NODES: No gross cervical or clavicular lymphadenopathy. ABDOMEN: redness at the crease. EXTREMITIES: Extremities warm and well perfused without clubbing, cyanosis, or edema. SKIN: Skin color and texture normal. No rashes or lesions. NEUROLOGIC: Alert and oriented ??3. No motor or sensory deficits in the extremities. LABS/IMAGING: ASSESSMENT: 1. Overweight 2. Postsurgical malabsorption, not elsewhere classified PLAN: 1. The patient has done very well after bariatric surgery. I will check labs to rule out any deficiencies that may have been caused by the operation. The patient will continue taking vitamin supplements and protein supplements. The patient will continue exercising and following a healthy lifestyle.Follow up in 6. documented in this encounter Plan of Treatment Upcoming Encounters Date Type Department Care Team ([facility] st Contact Info) Description 07/14/2025 10:45 AM EST Office Visit Bariatric Surgery - [address] [place] [phone] Bert Castañeda MD 175 [facility] [address] [place] [address] Pending Results Name Type Priority Associated Diagnoses Date /Time Albumin Lab Routine Postsurgical malabsorption, not elsewhere classified 01/06/2025 10:55 AM EDT Calcium Lab Routine Postsurgical malabsorption, not elsewhere classified 01/06/2025 10:55 AM EDT Copper, serum Lab Routine Postsurgical malabsorption, not elsewhere classified 01/06/2025 10:55 AM EDT Folate Lab Routine Postsurgical malabsorption, not elsewhere classified 01/06/2025 10:55 AM EDT Iron and TIBC Lab Routine Postsurgical malabsorption, not elsewhere classified 01/06/2025 10:55 AM EDT Parathyroid hormone intact Lab Routine Postsurgical malabsorption, not elsewhere classified 01/06/2025 10:55 AM EDT Selenium serum Lab Routine Postsurgical malabsorption, not elsewhere classified 01/06/2025 10:55 AM EDT Vitamin A Lab Routine Postsurgical malabsorption, not elsewhere classified 01/06/2025 10:55 AM EDT Vitamin B1 Lab Routine Postsurgical malabsorption, not elsewhere classified 01/06/2025 10:55 AM EDT Vitamin B12 Lab Routine Postsurgical malabsorption, not elsewhere classified 01/06/2025 10:55 AM EDT Vitamin B6 Lab Routine Postsurgical malabsorption, not elsewhere classified 01/06/2025 10:55 AM EDT Vitamin D 25 hydroxy Lab Routine Postsurgical malabsorption, not elsewhere classified 01/06/2025 10:55 AM EDT Zinc Lab Routine Postsurgical malabsorption, not elsewhere classified 01/06/2025 10:55 AM EDT Scheduled Orders Name Type Priority Associated Diagnoses Orde r Schedule Albumin Lab Routine Postsurgical malabsorption, not elsewhere classified 1 Occurrences starting 01/06/2025 until 01/06/2026 Calcium Lab Routine Postsurgical malabsorption, not elsewhere classified 1 Occurrences starting 01/06/2025 until 01/06/2026 Copper, serum Lab Routine Postsurgical malabsorption, not elsewhere classified 1 Occurrences starting 01/06/2025 until 01/06/2026 Folate Lab Routine Postsurgical malabsorption, not elsewhere classified 1 Occurrences starting 01/06/2025 until 01/06/2026 Iron and TIBC Lab Routine Postsurgical malabsorption, not elsewhere classified 1 Occurrences starting 01/06/2025 until 01/06/2026 Parathyroid hormone intact Lab Routine Postsurgical malabsorption, not elsewhere classified 1 Occurrences starting 01/06/2025 until 01/06/2026 Selenium serum Lab Routine Postsurgical malabsorption, not elsewhere classified 1 Occurrences starting 01/06/2025 until 01/06/2026 Vitamin A Lab Routine Postsurgical malabsorption, not elsewhere classified 1 Occurrences starting 01/06/2025 until 01/06/2026 Vitamin B1 Lab Routine Postsurgical malabsorption, not elsewhere classified 1 Occurrences starting 01/06/2025 until 01/06/2026 Vitamin B12 Lab Routine Postsurgical malabsorption, not elsewhere classified 1 Occurrences starting 01/06/2025 until 01/06/2026 Vitamin B6 Lab Routine Postsurgical malabsorption, not elsewhere classified 1 Occurrences starting 01/06/2025 until 01/06/2026 Vitamin D 25 hydroxy Lab Routine Postsurgical malabsorption, not elsewhere classified 1 Occurrences starting 01/06/2025 until 01/06/2026 Zinc Lab Routine Postsurgical malabsorption, not elsewhere classified 1 Occurrences starting 01/06/2025 until 01/06/2026 documented as of this encounter Visit Diagnoses Diagnosis Overweight- Primary Postsurgical malabsorption, not elsewhere classified Symptomatic abdominal panniculus documented in this encounter Discontinued Medications Medication Sig Discontinue Reason Start Date End Da te diphenoxylate-atropine (LOMOTIL) 2.5-0.025 mg per tabletIndications:Posts urgical malabsorption, not elsewhere classified TAKE 1 TABLET FOUR TIMES DAILY NEEDED FOR DIARRHEA Reorder 10/10/2024 01/06/2025 nystatin (MYCOSTATIN) 100,000 unit/gram powderIndications:Sympt omatic abdominal panniculus Apply topically 2 (two) times a day. Reorder 06/10/2024 01/06/2025 documented as of this encounter Care Teams Rn Clinician Relationship Specialty Start Date End Date Yola Hargrove DO PCP - General Rheumatology 09/14/17 documented as of this encounter
[2025-01-06 13:55] LABS: Anion Gap 8 (12-20); Blood Urea Nitrogen 13 mg/dL (9-16); Calcium 7.9 mg/dL (8.4-10.2); Carbon Dioxide 24 mmol/L (22-29); Chloride 113 mmol/L (96-108); Estimated Glomerular Filt Rate 54; Magnesium 1.9 mg/dL (1.6-2.6); Potassium 3.6 mmol/L (3.3-5.1); Sodium 141 mmol/L (135-145)
[2025-01-07 09:34] LABS: CA-125 12 U/mL (<35)
== END 2025-01-06 11:22 | disposition home or self-care (01) ==
LOC: HO.HHCL 11:21
PROVIDERS: Obstetrics & Gynecology; PCP Internal Medicine; Visit Provider Internal Medicine
DX: E21.3 Hyperparathyroidism, unspecified (principal); N83.299 Other ovarian cyst, unspecified side
CPT/HCPCS: 36415; 80048; 83735; 84100; 86304

== ENCOUNTER 2025-02-03 15:24 | Outpatient (AMB) | payer MEDICAID, SELFPAY ==
[2025-02-03 15:48] VITALS: BP 98/72; PULSE 74; BMI 28.5
--- NOTE | 2025-02-03 15:48 | MHC.OFFVIS ---
Vital Signs 02/03/25 15:48 Height 5 ft Weight 145 lb 12.739 oz BMI 28.5 BP 98/72 Blood Pressure Location Rt brachial Position Sitting Pulse 74 Pulse Source Pulse Oximeter Intake Visit Reasons: Hyperparathyroidism Intake Note: New patient externally referred by PCP for Hyperparathyroidism. Defensive Secondary Coach Required: No Accompanied by: Self / Same As Patient Allergies morphine (Morphine) Allergy (Intermediate, Verified 02/03/25 15:50) Vomiting iron dextran complex (Iron Dextran Complex) Adverse Reaction (Intermediate, Verified 02/03/25 15:50) BP DROPPED; PURITIS Medication List - Last Reconciled 02/03/25 by Apollo Sepulveda MD acetaminophen 1,000 mg PO Q6H PRN biotin 1 mg PO DAILY calcium carbonate 600 mg PO BID cholecalciferol (vitamin D3) 50 mcg PO DAILY copper gluconate 2 mg PO DAILY diclofenac sodium 1% grams topical dolutegravir (Tivicay) 50 mg PO DAILY duloxetine 30 mg PO DAILY emtricitabine-tenofovir (TDF) 200-300 mg (Truvada) 1 tab PO DAILY ergocalciferol (vitamin D2) 1,250 mcg PO QWEEK fluticasone propionate 50 mcg/actuation 2 sprays intranasal DAILY hydrocortisone 0.5% appl topical DAILY PRN hydroxyzine HCl 25 mg PO DAILY PRN loperamide 2 mg PO Q6H PRN loratadine 10 mg PO DAILY PRN melatonin 5 mg PO BEDTIME multivitamin 1 tab PO DAILY omeprazole 20 mg PO DAILY topiramate 25 mg PO BID valacyclovir 500 mg PO BID vitamin A 1 cap PO DAILY zinc gluconate 50 mg PO DAILY zolpidem 10 mg PO BEDTIME PRN HPI Comments Details: 45 YO F with PMHx bariatric surgery who is seen in consultation at the request of PCP for elevated parathyroid hormone Currently using Calcium supplement 600 mg QD X2 mos . Takes 2000 IU of Vitamin D daily for 1 yr . Kidney stones: Y Osteoporosis: N History of Flowella use: N Biotin use: Yes Family history of high calcium or kidney stones: N Renal imaging: [] DXA: Labs: The patient is a 45-year-old female presenting with elevated parathyroid hormone levels. She has a history of bariatric surgery, which has led to malabsorption issues, particularly affecting vitamin D absorption. The patient reports taking calcium supplements, 600 mg once daily, and vitamin D 2000 IU daily for about a year. In addition, she was taking 49994 IU of vitamin D2 ergocalciferol for some time prior to the vitamin-D level The patient experiences significant bone pain, particularly in the knees, which has been ongoing for about a year. She has a history of kidney stones but denies any current issues with osteoporosis or bone fractures. The patient denies any use of medications such as hydrocortisone or lithium and reports no family history of elevated calcium or parathyroid levels. [facility] Medical History (Updated 02/03/25 @ 15:43 by Apollo Sepulveda MD) Hyperparathyroid bone disease Uterine fibroid H/O bipolar disorder PTSD (post-traumatic stress disorder) Asthma Iron deficiency anemia due to chronic blood loss Inactive tuberculosis Hyperparathyroidism Hypoglycemia Herpes labialis History of anxiety Carpal tunnel syndrome Stroke History of major depression Abnormal uterine bleeding (AUB) Intestinal malabsorption following gastrectomy Morbid obesity with BMI of 40.0-44.9, adult Eczema HIV (human immunodeficiency virus infection) Surgical History History of tonsillectomy History of tubal ligation S/P laparoscopic cholecystectomy History of sleeve gastrectomy History of removal of laparoscopic gastric banding device History of adjustable gastric banding Family History Father Cirrhosis Mother Type 2 diabetes mellitus HTN (hypertension) Brother No problems noted. Brother No problems noted. Brother No problems noted. Sister No problems noted. Son No problems noted. Daughter No problems noted. Daughter No problems noted. Social History Are you a primary healthcare associate to a significant other at home: No Do you presently have visiting nurse or other home services: No Alcohol intake: current Alcohol intake frequency: holidays/special occasions only Comment: pt was medicated Patient Tobacco Use Status: Never used Tobacco Sexual orientation: Straight/Heterosexual Gender identity: Female Physical Exam Vital Signs: Last Vital Signs Pulse 74 02/03/25 15:48 BP 98/72 02/03/25 15:48 BMI result Body Mass Index 28.5 Const Other: Thyroid gland is normal size weighs about 15 g . There are no thyroid nodules palpated Assessment & Plan Assessment & Plan (1) Hyperparathyroid bone disease: Code(s): E21.0 - Primary hyperparathyroidism Category: Medical Plan: This is a 45-year-old female found to have an elevated parathyroid hormone with low vitamin-D suggestive of secondary hyperparathyroidism most likely result of the bariatric surgery and malabsorption. She is currently being replaced on 2000 IU of vitamin D3. She is also taking a biotin supplement. Plan [place] [address] IU twice a week in addition to the 2000 IU of vitamin D3 once a day . Would recheck calcium, albumin, PTH, 25 hydroxy vitamin-D, 24 hour urine for calcium and creatinine at [facility] ( [facility]) in 10 weeks once the patient has stopped the biotin for 7 days prior to the testing. Orders: Orders Albumin Level 10 Weeks E21.0 - Primary hyperparathyroidism Vitamin D 25-OH Total 10 Weeks E21.0 - Primary hyperparathyroidism Calcium, 24 Hr Ur 10 Weeks E21.0 - Primary hyperparathyroidism Creatinine, 24 Hr Group 10 Weeks E21.0 - Primary hyperparathyroidism Calcium 10 Weeks E21.0 - Primary hyperparathyroidism Parathyroid Hormone Intact 10 Weeks E21.0 - Primary hyperparathyroidism Medications: New cholecalciferol (vitamin D3) 50 mcg PO DAILY 30 caps 4RF ergocalciferol (vitamin D2) 1,250 mcg PO 2XW 10 caps 3RF Coding Level of Care Code New Pt Level 4 (78458) Diagnoses Hyperparathyroid bone disease E21.0
--- OUTSIDE RECORDS SUMMARY | 2025-02-03 16:20 | XMS_ITS | Clinical Summary ---
Author Organization [address] [place] [address] Address [address] [place] [address] Phone Care Team Providers Care Scuba Diving Teacher Name Role Phone AdamtayladylanYola Primary Care Provider [phone] Allergies Active Allergy Reactions Criticality Noted Date [...] daily for 30 days. - Oral Active simethicone (MYLICON) 80 mg chewable tabletIndications: [...] Daily Amount: 8 tablets 20 tablet 2 01/07/20 25 Active nystatin (MYCOSTATIN) 100,000 unit/gram powderIndications: Symptomatic abdominal panniculus Apply topically 2 (two) times a day. 15 g 01/07/20 25 026 Active ferrous sulfate 325 mg (65 mg iron) EC tabletIndications: Postoperative malabsorption Take 1 tablet (325 mg total) by mouth 1 (one) time each day. Do not crush, chew, or split. 30 each 01/10/20 25 025 Active ergocalciferol (VITAMIN D-2) 1,250 mcg (50,000 unit) capsuleIndications :Postoperative malabsorption Take 1 capsule (50,000 Units total) by mouth 1 (one) time per week for 8 doses. 8 each 01/10/20 25 025 Active zinc gluconate 50 mg tabletIndications: Postoperative malabsorption Take 1 tablet (50 mg total) by mouth 1 (one) time each day. 30 tablet 01/10/20 25 026 Active vitamin A 3,000 mcg (10,000 unit) tabletIndications: Postoperative intestinal malabsorption Take 1 tablet (10,000 Units total) by mouth 1 (one) time each day. 30 tablet 01/13/20 25 025 Active copper gluconate 2 mg capsuleIndications :Postoperative intestinal malabsorption Take 1 capsule by mouth 1 (one) time each day. 60 capsule 01/13/20 25 025 Active nystatin (MYCOSTATIN) 100,000 unit/gram powderIndications: Symptomatic abdominal panniculus Apply topically 2 (two) times a day. 15 g 06/10/20 24 025 Discontin ued(Reord er) zinc gluconate 50 mg tabletIndications: Postoperative malabsorption Take 1 tablet (50 mg total) by mouth 1 (one) time each day. 30 tablet 07/01/19 25 025 Discontin ued(Reord er) diphenoxylate-atro pine (LOMOTIL) 2.5-0.025 mg per tabletIndications: Postsurgical malabsorption, not elsewhere classified TAKE 1 TABLET FOUR TIMES DAILY NEEDED FOR DIARRHEA 20 tablet 2 10/11/19 25 025 Discontin ued(Reord er) Active Problems Problem Noted Date Diagnosed Date Class 1 obesity with body ma ss index (BMI) of 34.0 to 34.9 in adult 03/14/2024 Class 3 severe obesity with body mass index (BMI) of 40.0 to 44.9 in adult (CMS/[facility] V24, CMS/[facility] V28) 03/14/2024 Encounters Date Type Department Care Team Description 01/06/2025 11:00 AM EDT Office Visit Bariatric Surgery - [address] [address] Bert Castañeda MD Overweight (Primary Dx); Postsurgical malabsorption, not elsewhere classified; Symptomatic abdominal panniculus from Last 3 Months Surgical History Surgery Date Site/Laterality Comments LAPAROSCOPIC GASTRIC BANDING 2016? PROCEDURE: LAP ADJUSTABLE GASTRIC BAND Medical History Medical History Date Comments HIV (human immunodeficiency virus infection) (CMS/HCC V24, CMS/HCC V28) DX:HIV (human im munodeficiency virus infection) ([facility]) Social History Tobacco Use Types Packs/Day Years [...] Mass Index 27.93 01/06/2025 10:31 AM EDT Plan of Treatment Upcoming Encounters Date Type Department Care Team (Late st Contact Info) Description 07/14/2025 10:45 AM EST Office Visit Bariatric Surgery - [address] [place] [address] Bert Castañeda MD [address] [place] [phone] Health Maintenance Due Date Last Done Comments Breast Cancer Screening 1978 Cervical Cancer Screening: Pap Smear 1999 Hepatitis B Vaccines (2 of 3 - 19+ 3-dose series) 08/29/2001 08/01/2001 Cholesterol Screening (Lipid Panel) 05/10/2022 Colorectal Cancer Screening: Colonoscopy 05/10/2022 HIV Screening 05/10/2022 Hepatitis C Screening 05/10/2022 Social Influencers of Health Screening 05/10/2022 COVID-19 Vaccine ( season) 2024 06/01/2022, 04/22/2021, 07/29/2020, Additional history exists Depression Screening 06/11/2024 Influenza Vaccine (#1) 2025 4, 03/06/2023, 02/23/2022, Additional history exists DTaP,Tdap,and Td [...] Procedure Name Priority Date/Time Associated Diagnosis Comments ALBUMIN Routine 01/06/2025 10:55 AM EDT Postsurgical malabsorption, not elsewhere classified CALCIUM Routine 01/06/2025 10:55 AM EDT Postsurgical malabsorption, not elsewhere classified COPPER, SERUM Routine 01/06/2025 10:55 AM EDT Postsurgical malabsorption, not elsewhere classified FOLATE Routine 01/06/2025 10:55 AM EDT Postsurgical malabsorption, not elsewhere classified IRON AND TIBC Routine 01/06/2025 10:55 AM EDT Postsurgical malabsorption, not elsewhere classified PARATHYROID HORMONE INTACT Routine 01/06/2025 10:55 AM EDT Postsurgical malabsorption, not elsewhere classified SELENIUM SERUM Routine 01/06/2025 10:55 AM EDT Postsurgical malabsorption, not elsewhere classified VITAMIN A Routine 01/06/2025 10:55 AM EDT Postsurgical malabsorption, not elsewhere classified VITAMIN B1 Routine 01/06/2025 10:55 AM EDT Postsurgical malabsorption, not elsewhere classified VITAMIN B12 Routine 01/06/2025 10:55 AM EDT Postsurgical malabsorption, not elsewhere classified VITAMIN B6 Routine 01/06/2025 10:55 AM EDT Postsurgical malabsorption, not elsewhere classified VITAMIN D 25 HYDROXY Routine 01/06/2025 10:55 AM EDT Postsurgical malabsorption, not elsewhere classified ZINC Routine 01/06/2025 10:55 AM EDT Postsurgical malabsorption, not elsewhere classified from Last 3 Months Results * (ABNORMAL) Iron and TIBC (01/06/2025 10:55 AM EDT) Iron 32(L) 40 - 150 mcg/dL LAB CHEMISTRY METHOD 01/06/2025 4:10 PM EDT [facility] TIBC 267 250 - 450 mcg/dL LAB CHEMISTRY METHOD 01/06/2025 4:10 PM EDT [facility] Iron Saturation 12(L) 15 - 50 % LAB CHEMISTRY METHOD 01/06/2025 4:10 PM EDT [facility] Blood Venous blood specimen / Unknown Venipuncture / Unknown 01/06/2025 10:55 AM EDT 01/06/2025 10:55 AM EDT us Bert Castañeda MD LAB BLOOD ORDERABLES Final R esult [facility] ([facility]) [facility] [address] [place] [address], * (ABNORMAL) Copper, serum (01/06/2025 10:55 AM EDT) Copper 786(L) 810 - 1990 ug/L 01/12/2025 9:23 AM EDT [facility] Comment: Copper values may be elevated to twice the normal levels in . Elevated results may be due to sample collected in a non-certified trace element-free tube. This test was developed and the performance characteristics determined by [facility]. It has not been cleared or approved by the FDA. The laboratory is regulated under CLIA as qualified to perform high-complexity testing. This test is used for patient testing purposes. It should not be regarded as investigational or for research. Test performed at [facility], [address] [place] [address] Sandra Turner MD, PhD - Perinatal Educator Blood Venous blood specimen / Unknown Venipuncture / Unknown 01/06/2025 10:55 AM EDT 01/06/2025 10:55 AM EDT us Bert Castañeda MD LAB BLOOD ORDERABLES Final R esult [facility] [address] [place] [address] * (ABNORMAL) Zinc (01/06/2025 10:55 AM EDT) Zinc 48(L) 60 - 130 ug/dL 01/09/2025 9:36 AM EDT [facility] Comment: Elevated results may be due to sample collected in a non-certified trace element-free tube. This test was developed and the performance characteristics determined by [facility]. It has not been cleared or approved by the FDA. The laboratory is regulated under CLIA as qualified to perform high-complexity testing. This test is used for patient testing purposes. It should not be regarded as investigational or for research. Test performed at [facility], [address] [place] [address] Sandra Turner MD, PhD - Perinatal Educator Blood Venous blood specimen / Unknown Venipuncture / Unknown 01/06/2025 10:55 AM EDT 01/06/2025 10:55 AM EDT Bert Castañeda MD LAB BLOOD ORDERABLES Final R esult Performing Organization Address City/[facility]/ZIP Co de Phone Number [facility] [address] [place] [address] * (ABNORMAL) Vitamin A (01/06/2025 10:55 AM EDT) Vitamin A 21(L) 38 - 106 ug/dL 01/12/2025 6:35 AM EDT [facility] Comment: This test was developed and the performance characteristics determined by [facility]. It has not been cleared or approved by the FDA. The laboratory is regulated under CLIA as qualified to perform high-complexity testing. This test is used for patient testing purposes. It should not be regarded as investigational or for research. Test performed at [facility], [address] [place] [address] Sandra Turner MD, PhD - Perinatal Educator Blood Venous blood specimen / Unknown Venipuncture / Unknown 01/06/2025 10:55 AM EDT 01/06/2025 10:55 AM EDT us Bert Castañeda MD LAB BLOOD ORDERABLES Final R esult Performing Organization Address [facility]/ZIP Co de Phone Number [facility] [address] [place] [address] * Selenium serum (01/06/2025 10:55 AM EDT) Selenium 101 63 - 160 mcg/L 01/10/2025 8:50 PM EDT [facility] Comment: This test was developed and its analytical performance characteristics have been determined by [employer] [place], [place]. It has not been cleared or approved by the U.S. Food and Drug Administration. This assay has been validated pursuant to the CLIA regulations and is used for clinical purposes. Test Performed by [email or web address], [employer] [facility], [address] [place] [address] Ashish Richardson M.D., Ph.D., Director of Laboratories , CLIA [id number] Blood Venous blood specimen / Unknown Venipuncture / Unknown 01/06/2025 10:55 AM EDT 01/06/2025 10:55 AM EDT Bert Castañeda MD LAB BLOOD ORDERABLES Final R esult [facility] [address] [place] [address] * (ABNORMAL) Vitamin D 25 hydroxy (01/06/2025 10:55 AM EDT) [facility] Vit D, 25-Hydroxy 27.1(L) 30.0 - 80.0 ng/mL LAB CHEMISTRY METHOD 01/06/2025 4:23 PM EDT [facility] Blood Venous blood specimen / Unknown Venipuncture / Unknown 01/06/2025 10:55 AM EDT 01/06/2025 10:55 AM EDT Bert Castañeda MD LAB BLOOD ORDERABLES Final R esult [facility] [address] [place] [address], [place] [phone] * Vitamin B1 (01/06/2025 10:55 AM EDT) [facility] Vitamin B1 Whole Blood 88 38 - 122 ug/L 01/12/2025 7:32 AM EDT [facility] Comment: This test was developed and the performance characteristics determined by [facility]. It has not been cleared or approved by the FDA. The laboratory is regulated under CLIA as qualified to perform high-complexity testing. This test is used for patient testing purposes. It should not be regarded as investigational or for research. Test performed at [facility], [address] [place] [address] Sandra Turner MD, PhD - Perinatal Educator Blood Venous blood specimen / Unknown Venipuncture / Unknown 01/06/2025 10:55 AM EDT 01/06/2025 10:55 AM EDT Bert Castañeda MD LAB BLOOD ORDERABLES Final R esult Performing Organization Address City/[facility]/ZIP Co de Phone Number [facility] [address] [place] [address] * Vitamin B6 (01/06/2025 10:55 AM EDT) Pathologist [facility] Vitamin B6 (Pyridoxine) Level 31 5 - 50 ug/L 01/12/2025 12:50 PM EDT [facility] Comment: This test was developed and the performance characteristics determined by [facility]. It has not been cleared or approved by the FDA. The laboratory is regulated under CLIA as qualified to perform high-complexity testing. This test is used for patient testing purposes. It should not be regarded as investigational or for research. Test performed at [facility], [address] [place] [address] Sandra Turner MD, PhD - Perinatal Educator Blood Venous blood specimen / Unknown Venipuncture / Unknown 01/06/2025 10:55 AM EDT 01/06/2025 10:55 AM EDT Bert Castañeda MD LAB BLOOD ORDERABLES Final R esult Performing Organization Address City/[facility]/ZIP Co de Phone Number [facility] [address] [place] [address] * (ABNORMAL) Parathyroid hormone intact (01/06/2025 10:55 AM EDT) PTH 140.4(H) 18.5 - 88.0 pcg/mL LAB CHEMISTRY METHOD 01/06/2025 4:23 PM EDT [facility] Blood Venous blood specimen / Unknown Venipuncture / Unknown 01/06/2025 10:55 AM EDT 01/06/2025 10:55 AM EDT us Bert Castañeda MD LAB BLOOD ORDERABLES Final R esult Performing Organization Address City/[facility]/ZIP Co de Phone Number [facility] [address] [place] [address], [place] [phone] * (ABNORMAL) Folate (01/06/2025 10:55 AM EDT) [facility] Folate >20.0(H) 2.8 - 17.0 ng/ml LAB CHEMISTRY METHOD 01/06/2025 4:10 PM EDT [facility] Blood Venous blood specimen / Unknown Venipuncture / Unknown 01/06/2025 10:55 AM EDT 01/06/2025 10:55 AM EDT us Bert Castañeda MD LAB BLOOD ORDERABLES Final R esult Performing Organization Address City/[facility]/ZIP Co de Phone Number [facility] [address] [place] [address], [place] [phone] * Vitamin B12 (01/06/2025 10:55 AM EDT) [facility] Vitamin B-12 482 250 - 900 pcg/mL LAB CHEMISTRY METHOD 01/06/2025 4:10 PM EDT [facility] Blood Venous blood specimen / Unknown Venipuncture / Unknown 01/06/2025 10:55 AM EDT 01/06/2025 10:55 AM EDT us Bert Castañeda MD LAB BLOOD ORDERABLES Final R esult [facility] [address] [place] [address], [place] [phone] * Calcium (01/06/2025 10:55 AM EDT) Calcium 9.0 8.5 - 10.5 mg/dL LAB CHEMISTRY METHOD 01/06/2025 3:18 PM EDT [facility] Blood Venous blood specimen / Unknown Venipuncture / Unknown 01/06/2025 10:55 AM EDT 01/06/2025 10:55 AM EDT Bert Castañeda MD LAB BLOOD ORDERABLES Final R esult Performing Organization Address [facility]/ZIP Co de Phone Number [facility] [address] [place] [address], [place] [phone] * (ABNORMAL) Albumin (01/06/2025 10:55 AM EDT) Albumin 2.8(L) 3.2 - 5.0 g/dL LAB CHEMISTRY METHOD 01/06/2025 3:18 PM EDT [facility] Blood Venous blood specimen / Unknown Venipuncture / Unknown 01/06/2025 10:55 AM EDT 01/06/2025 10:55 AM EDT Bert Castañeda MD LAB BLOOD ORDERABLES Final R esult [facility] [address] [place] [address], [place] [phone] from Last 3 Months Insurance MEDICAID - [place] Care Teams Scuba Diving Teacher Relationship Specialty Start Date End Date Yola Hargrove DO PCP - General Rheumatology 09/14/17
== END 2025-02-03 16:26 | disposition home or self-care (01) ==
LOC: HO.ENCR 15:24
PROVIDERS: PCP Internal Medicine; Visit Provider Internal Medicine Endocrinology, Diabetes & Metabolism
DX: E21.0 Primary hyperparathyroidism (principal)
CPT/HCPCS: 99204

== ENCOUNTER → 2025-02-03 15:24 | Outpatient (BNVA) | payer MEDICAID, SELFPAY | PROVIDERS: PCP Internal Medicine; Visit Provider Internal Medicine Endocrinology, Diabetes & Metabolism | DX: E21.0 Primary hyperparathyroidism (principal) | CPT/HCPCS: 99202 ==

== ENCOUNTER 2025-03-31 09:30 | Outpatient (REF) | payer MEDICAID, SELFPAY ==
[2025-03-31 12:08] LABS: Anion Gap 12 (12-20); Blood Urea Nitrogen 17 mg/dL (9-16); Calcium 7.9 mg/dL (8.4-10.2); Carbon Dioxide 20 mmol/L (22-29); Chloride 112 mmol/L (96-108); Estimated Glomerular Filt Rate > 60; Potassium 4.1 mmol/L (3.3-5.1); Sodium 140 mmol/L (135-145)
== END 2025-03-31 09:31 | disposition home or self-care (01) ==
LOC: HO.HHCL 09:30
PROVIDERS: PCP Internal Medicine; Visit Provider Internal Medicine
DX: E55.9 Vitamin D deficiency, unspecified (principal)
CPT/HCPCS: 36415; 80048